=== PATIENT | female | born 1970 | race African-American/Black ===

== ENCOUNTER 2018-10-01 02:25 | Emergency (ER) | payer MEDICAID ==
[~2018-10-01] VITALS: Ht 177.8 cm; Wt 68.0 kg
[2018-10-01] MEDS ORDERED: UNOBMED (02:30)
--- NOTE | 2018-10-01 02:45 | NUR ---
ED Nurse Note: returned from break to resume care, tp in bed awake and alert, resting quietly, just returning from imaging, pt has patent iv line started by talita peacock, fluids infusing, pt on monitoring, will resume care as ordered and continue to closely monitor.
--- NOTE | 2018-10-01 03:16 | Emergency Room Report ---
History of Present Illness General Chief Complaint: Headache Source: Patient Present Illness HPI Patient present with complaints of headache Fairly diffuse in nature Reports that over the past several days has slowly started to worsen Denies any neck pain or photophobia denies any chest pain Patient reports that she has a history of HIV Is on HIV medication and blood pressure medication She does not recall the name of the medication Denies any recent fall or trauma Denies any focal deficit Denies any change in vision Allergies: Coded Allergies: No Known Allergies (Unverified , 10/01/18) Patient History Past Medical History: see triage record Pertinent Family History: none Last Menstrual Period: n/a Reviewed Nursing Documentation: PMH: Agreed; PSxH: Agreed Nursing Documentation-PMH Past Medical History: No History, Except For Hx Hypertension: Yes Review of Systems All Other Systems: negative except mentioned in HPI Physical Exam Vital Signs Date Time Temp Pulse Resp B/P (MAP) Pulse Ox O2 Delivery O2 Flow Rate FiO2 10/01/18 02:25 97.5 65 18 160/107 89 Room Air Sp02 EP Interpretation: reviewed, normal General Appearance: thin Head: normocephalic, atraumatic Eyes: bilateral eye PERRL, bilateral eye EOMI ENT: dry mucus membranes Neck: full range of motion, supple Respiratory: lungs clear, no respiratory distress, no retraction Cardiovascular #1: regular rate, rhythm Gastrointestinal: non tender, soft Musculoskeletal: normal inspection Neurologic: alert, oriented x3, responsive, business taxes specialist III-XII nml as tested Skin: no rash, warm/dry Medical Decision Making Diagnostic Impression: Primary Impression: Headache Additional Impression: Leukopenia ER Course Multiple differentials and consideration including but not limited to neurological, neurosurgical, infectious patient's blood work reveals a low white blood cell count Likely consistent with her HIV status Patient is somewhat noncompliant and is a poor historian cannot recall her CD4 or viral load count CT had otherwise negative patient's electrolytes are also appropriate patient has been resting comfortably throughout her stay At this time requires close outpatient follow-up and reevaluation of her leukopenia Labs Test 10/01/18 03:00 White Blood Count 2.4 K/UL (4.8-10.8) Red Blood Count 5.75 M/UL (4.20-5.40) Hemoglobin 14.7 G/DL (12.0-16.0) Hematocrit 46.0 % (37.0-47.0) Mean Corpuscular Volume 80 FL (80-99) Mean Corpuscular Hemoglobin 25.7 PG (27.0-31.0) Mean Corpuscular Hemoglobin Concent 32.1 G/DL (32.0-36.0) Red Cell Distribution Width 14.0 % (11.6-14.8) Platelet Count 286 K/UL (150-450) Mean Platelet Volume 6.1 FL (6.5-10.1) Neutrophils (%) (Auto) % (45.0-75.0) Lymphocytes (%) (Auto) % (20.0-45.0) Monocytes (%) (Auto) % (1.0-10.0) Eosinophils (%) (Auto) % (0.0-3.0) Basophils (%) (Auto) % (0.0-2.0) Sodium Level 137 MMOL/L (136-145) Potassium Level 3.9 MMOL/L (3.5-5.1) Chloride Level 100 MMOL/L (98-107) Carbon Dioxide Level 24 MMOL/L (21-32) Anion Gap 13 mmol/L (5-15) Blood Urea Nitrogen 15 mg/dL (7-18) Creatinine 0.9 MG/DL (0.55-1.30) Estimat Glomerular Filtration Rate > 60 mL/min (>60) Glucose Level 106 MG/DL (74-106) Calcium Level 9.8 MG/DL (8.5-10.1) Total Bilirubin 0.5 MG/DL (0.2-1.0) Aspartate Amino Transf (AST/SGOT) 34 U/L (15-37) Alanine Aminotransferase (ALT/SGPT) 38 U/L (12-78) Alkaline Phosphatase 90 U/L (46-116) Total Protein 9.2 G/DL (6.4-8.2) Albumin 3.8 G/DL (3.4-5.0) Globulin 5.4 g/dL Albumin/Globulin Ratio 0.7 (1.0-2.7) Rhythm Strip Diag. Results EP Interpretation: yes Rate: 60 Rhythm: NSR, no PVC's, no ectopy CT/MRI/US Diagnostic Results CT/MRI/US Diagnostic Results : Impression CT head no acute disease Last Vital Signs Date Time Temp Pulse Resp B/P (MAP) Pulse Ox O2 Delivery O2 Flow Rate FiO2 10/01/18 02:25 97.5 65 18 160/107 89 Room Air Status: improved Disposition: HOME, SELF-CARE Condition: Improved Scripts Ibuprofen* (MOTRIN*) 600 Mg Tablet 600 MG ORAL Q8H PRN for For Pain, #20 TAB 0 Refills Prov: Catrachita Yoder DO 10/01/18 Referrals: NOT CHOSEN IPA/MD,REFERRING (PCP) Additional Instructions: Patient is provided with the discharge instructions notified to follow up with primary doctor in the next 2-3 days otherwise return to the er with any worsening symptoms. Please note that this report is being documented using [employer] technology. This can lead to erroneous entry secondary to incorrect interpretation by the dictating instrument. Catrachita Yoder DO Oct 01, 2018 03:16
[2018-10-01 03:19] LABS: HEMOGLOBIN 14.7 G/DL (12.0-16.0); MEAN CORPUSCULAR VOLUME 80 FL (80-99); PLATELET COUNT 286 K/UL (150-450); RED BLOOD COUNT 5.75 M/UL (4.20-5.40); WHITE BLOOD COUNT 2.4 K/UL (4.8-10.8)
[2018-10-01 03:29] LABS: ANION GAP 13 mmol/L (5-15); BLOOD UREA NITROGEN 15 mg/dL (7-18); CALCIUM 9.8 MG/DL (8.5-10.1); CARBON DIOXIDE 24 MMOL/L (21-32); CHLORIDE 100 MMOL/L (98-107); CREATININE 0.9 MG/DL (0.55-1.30); POTASSIUM 3.9 MMOL/L (3.5-5.1); SODIUM 137 MMOL/L (136-145)
[2018-10-01 03:35] LABS: ALANINE AMINOTRANSFERASE 38 U/L (12-78); ALBUMIN 3.8 G/DL (3.4-5.0); ALBUMIN/GLOBULIN RATIO 0.7 (1.0-2.7); ALKALINE PHOSPHATASE 90 U/L (46-116); ASPARTATE AMINO TRANSFERASE 34 U/L (15-37); BILIRUBIN,TOTAL 0.5 MG/DL (0.2-1.0)
[2018-10-01] MEDS ORDERED: IBUPROFEN600 MG ORAL (04:11)
[2018-10-01 06:00] VITALS: BP 147/91
[2018-10-01 06:19] VITALS: BP 147/91
--- NOTE | 2018-10-01 10:25 | Diagnostic Imaging Report ---
Indications: Headache for one day Technique: Spiral acquisitions obtained through the brain. Angled axial and coronal 5 x 5 mm slices were reconstructed. Total dose length product 1309.23 mGycm. CTDI vol(s) 70.38 mGy. Dose reduction achieved using automated exposure control Comparison: None. Findings: No acute intracranial hemorrhage or edema, mass effect, nor midline shift. Normal adame-white differentiation. Normal-sized ventricles and extra axial CSF spaces. Intact calvarium. Visualized orbits and sinuses are unremarkable. Impression: Negative This agrees with the preliminary interpretation provided overnight by [facility]erad[facility] service. The CT scanner at [facility] is accredited by the [employer] and the scans are performed using protocols designed to limit radiation exposure to as low as reasonably achievable to attain images of sufficient resolution adequate for diagnostic evaluation.
== END 2018-10-01 06:20 | disposition home or self-care (01) ==
LOC: EDBD 02:25 → EMR 02:45 → CANBEDREQ 03:14 → EMR 06:20
DX: R51 Headache (principal); D72.819 Decreased white blood cell count, unspecified; I10 Essential (primary) hypertension
CPT/HCPCS: 36415; 70450; 80053; 85025; 96361; 96374; 99284; J2405

== ENCOUNTER 2018-10-11 14:05 | Inpatient (IN) | payer MEDICAID ==
[~2018-10-11] VITALS: Ht 160 cm; Wt 45.4 kg
[~2018-10-11 14:05] MED LIST: IBUPROFEN600 MG ORAL; UNOBMED
[2018-10-11 14:25] VITALS: BP 120/100
[2018-10-11] MEDS ORDERED: Sodium Chloride 1,400 ML IVLG ONE (14:30)
[2018-10-11 15:00] VITALS: BP 150/103
[2018-10-11 15:19] LABS: BASOPHILS % (AUTO) 2.7 % (0.0-2.0); EOSINOPHILS % (AUTO) 0.2 % (0.0-3.0); HEMATOCRIT 46.9 % (37.0-47.0); HEMOGLOBIN 15.4 G/DL (12.0-16.0); LYMPHOCYTES % (AUTO) 13.5 % (20.0-45.0); MEAN CORPUSCULAR VOLUME 80 FL (80-99); MONOCYTES % (AUTO) 11.2 % (1.0-10.0); NEUTROPHILS % (AUTO) 72.4 % (45.0-75.0); PLATELET COUNT 179 K/UL (150-450); RED BLOOD COUNT 5.88 M/UL (4.20-5.40); RED CELL DISTRIBUTION WIDTH 14.3 % (11.6-14.8); WHITE BLOOD COUNT 6.6 K/UL (4.8-10.8)
--- NOTE | 2018-10-11 15:57 | Diagnostic Imaging Report ---
Indication: Chest pain Technique: One view of the chest Comparison: none Findings: Lungs are hyperinflated. There is a large bulla in the right upper lobe. Very questionable focal hazy opacity is seen at the right lung base. Lungs and pleural spaces otherwise clear. The heart size is normal Impression: Evidence of bullous COPD Very questionable faint patchy infiltrate at the right lung base. No acute process otherwise
[2018-10-11 16:22] LABS: INR 1.2 (0.9-1.1)
--- NOTE | 2018-10-11 16:40 | Emergency Room Report ---
History of Present Illness General Chief Complaint: Generalized Weakness Source: Patient, EMS Present Illness HPI This patient complains of fatigue and generalized weakness. She has a history of HIV. She states she has been taking her HIV treatment. She denies pain. She denies recent illness. She denies chest pain or shortness of breath. She denies nausea or vomiting. She denies fever or chills. She denies dysuria or hematuria. She has no other complaints. Allergies: Coded Allergies: No Known Allergies (Unverified , 10/01/18) Patient History Past Medical History: see triage record, HTN, HIV Reviewed Nursing Documentation: PMH: Agreed; PSxH: Agreed Nursing Documentation-PMH Past Medical History: No History, Except For Hx Hypertension: Yes Review of Systems All Other Systems: negative except mentioned in HPI Physical Exam Vital Signs Date Time Temp Pulse Resp B/P (MAP) Pulse Ox O2 Delivery O2 Flow Rate FiO2 10/11/18 14:06 98.1 133 16 124/92 98 Room Air Sp02 EP Interpretation: reviewed, normal General Appearance: no apparent distress, alert, GCS 15, non-toxic, cachetic Head: normocephalic, atraumatic Eyes: bilateral eye normal inspection, bilateral eye PERRL ENT: hearing grossly normal, normal pharynx, no angioedema, normal voice Neck: full range of motion, supple/symm/no masses Respiratory: chest non-tender, lungs clear, normal breath sounds, no respiratory distress, no retraction, no accessory muscle use, speaking full sentences Cardiovascular #1: regular rate, rhythm, no edema Gastrointestinal: normal bowel sounds, non tender, soft, non-distended, no guarding, no rebound Rectal: deferred Musculoskeletal: back normal, normal range of motion, non-tender Neurologic: alert, oriented x3, responsive, motor strength/tone normal, sensory intact, speech normal Psychiatric: judgement/insight normal, memory normal, mood/affect normal, no suicidal/homicidal ideation Skin: normal color, no rash, warm/dry, well hydrated Medical Decision Making Diagnostic Impression: Primary Impression: UTI (urinary tract infection) Additional Impressions: HIV (human immunodeficiency virus infection) Cachexia ER Course This patient is profoundly cachectic. She has a history of HIV and although she states she is taking her antiretrovirals, I'm concerned that maybe she is noncompliant. Regardless, she was found to have a urinary tract infection. I' m concerned about immunocompromised in this patient I do not feel that she is safe to be discharged home. She given IV antibiotics and IV fluids here in the emergency department. She had significant improvement in her heart rate with IV fluids. She was found to be positive for cocaine on urine drug screen. She is admitted for further evaluation and treatment. Laboratory Tests Test 10/11/18 15:04 10/11/18 15:50 White Blood Count 6.6 K/UL (4.8-10.8) Red Blood Count 5.88 M/UL (4.20-5.40) H Hemoglobin 15.4 G/DL (12.0-16.0) Hematocrit 46.9 % (37.0-47.0) Mean Corpuscular Volume 80 FL (80-99) Mean Corpuscular Hemoglobin 26.3 PG (27.0-31.0) L Mean Corpuscular Hemoglobin Concent 32.9 G/DL (32.0-36.0) Red Cell Distribution Width 14.3 % (11.6-14.8) Platelet Count 179 K/UL (150-450) Mean Platelet Volume 6.2 FL (6.5-10.1) L Neutrophils (%) (Auto) 72.4 % (45.0-75.0) Lymphocytes (%) (Auto) 13.5 % (20.0-45.0) L Monocytes (%) (Auto) 11.2 % (1.0-10.0) H Eosinophils (%) (Auto) 0.2 % (0.0-3.0) Basophils (%) (Auto) 2.7 % (0.0-2.0) H Prothrombin Time 12.5 SEC (9.30-11.50) H Prothrombin Time INR 1.2 (0.9-1.1) H PTT 26 SEC (23-33) Lactic Acid Level Pending Serum Alcohol Pending EKG Diagnostic Results Rate: tachycardiac Rhythm: other - s.tachycardia ST Segments: other - flipped T-waves V4,V5, V6 Rhythm Strip Diag. Results EP Interpretation: yes Rate: 110's Rhythm: no PVC's, no ectopy, other - S.tachycardia Chest X-Ray Diagnostic Results Chest X-Ray Diagnostic Results : Chest X-Ray Ordered: Yes # of Views/Limited/Complete: 1 View Indication: Other - weak EP Interpretation: Yes Interpretation: no effusion, no pneumothorax, other - RLL opacity Impression: Other - See above Electronically Signed by: Maxine Pham DO Last Vital Signs Date Time Temp Pulse Resp B/P (MAP) Pulse Ox O2 Delivery O2 Flow Rate FiO2 10/11/18 14:25 120 20 10/11/18 14:25 98.0 120/100 100 Room Air Status: improved Disposition: ADMITTED INPATIENT Condition: Serious Referrals: NOT CHOSEN IPA/,REFERRING (PCP) Maxine Pham DO Oct 11, 2018 16:40
[2018-10-11 17:00] VITALS: BP 157/102
[2018-10-11 17:47] LABS: APPEARANCE,URINE SLIGHTLY CLOUDY; BILIRUBIN, URINE NEGATIVE (NEGATIVE); COLOR,URINE YELLOW; GLUCOSE, URINE (UA) NEGATIVE (NEGATIVE); KETONES,URINE NEGATIVE (NEGATIVE); LEUKOCYTE ESTERASE ,URINE 3+ (NEGATIVE); NITRITE,URINE POSITIVE (NEGATIVE); PH,URINE 6.5 (4.5-8.0); PROTEIN,URINE 2+ (NEGATIVE); UROBILINOGEN,URINE 4 MG/DL (0.0-1.0)
[2018-10-11 19:00] VITALS: BP 137/108
[2018-10-11] MEDS ORDERED: cefTRIAXone 1 GM in NS 55 ML IVPB ONE (19:30)
[2018-10-11 20:11] LABS: ANION GAP 10 mmol/L (5-15); BLOOD UREA NITROGEN 21 mg/dL (7-18); CALCIUM 9.1 MG/DL (8.5-10.1); CARBON DIOXIDE 26 MMOL/L (21-32); CHLORIDE 105 MMOL/L (98-107); CREATININE 0.8 MG/DL (0.55-1.30); POTASSIUM 3.5 MMOL/L (3.5-5.1); SODIUM 141 MMOL/L (136-145)
[2018-10-11 20:24] LABS: ALANINE AMINOTRANSFERASE 62 U/L (12-78); ALBUMIN 3.1 G/DL (3.4-5.0); ALBUMIN/GLOBULIN RATIO 0.7 (1.0-2.7); ALKALINE PHOSPHATASE 82 U/L (46-116); ASPARTATE AMINO TRANSFERASE 37 U/L (15-37); BILIRUBIN,TOTAL 0.6 MG/DL (0.2-1.0); CKMB 1.2 NG/ML (0.0-3.6); CREATINE KINASE 54 U/L (26-308); PHOSPHORUS 3.6 MG/DL (2.5-4.9)
[2018-10-11] MEDS ORDERED: Albuterol/Ipratropium 3ml neb HHN PRN (21:45)
[2018-10-11] MEDS ORDERED: Miralax 17gm pkt ORAL PRN (21:45)
[2018-10-11] MEDS ORDERED: Morphine Sulfate 2mg/ml Inj(IV/IM USE ONLY) IVP PRN (21:45)
[2018-10-11] MEDS ORDERED: Vancomycin 1 GM in D5W 275 ML IVPB SCH (23:00)
[2018-10-12] VITALS: BP 156/102
[2018-10-12 04:00] VITALS: BP 151/103
[2018-10-12 06:37] LABS: BASOPHILS % (AUTO) 0.8 % (0.0-2.0); EOSINOPHILS % (AUTO) 0.2 % (0.0-3.0); HEMATOCRIT 44.9 % (37.0-47.0); HEMOGLOBIN 14.4 G/DL (12.0-16.0); LYMPHOCYTES % (AUTO) 10.1 % (20.0-45.0); MEAN CORPUSCULAR VOLUME 81 FL (80-99); MONOCYTES % (AUTO) 10.5 % (1.0-10.0); NEUTROPHILS % (AUTO) 78.5 % (45.0-75.0); PLATELET COUNT 197 K/UL (150-450); RED BLOOD COUNT 5.55 M/UL (4.20-5.40); RED CELL DISTRIBUTION WIDTH 14.8 % (11.6-14.8); WHITE BLOOD COUNT 3.7 K/UL (4.8-10.8)
[2018-10-12 06:50] LABS: ALANINE AMINOTRANSFERASE 59 U/L (12-78); ALBUMIN 3.2 G/DL (3.4-5.0); ALBUMIN/GLOBULIN RATIO 0.7 (1.0-2.7); ALKALINE PHOSPHATASE 80 U/L (46-116); ANION GAP 10 mmol/L (5-15); ASPARTATE AMINO TRANSFERASE 37 U/L (15-37); BILIRUBIN,TOTAL 0.8 MG/DL (0.2-1.0); BLOOD UREA NITROGEN 13 mg/dL (7-18); CALCIUM 8.8 MG/DL (8.5-10.1); CARBON DIOXIDE 25 MMOL/L (21-32); CHLORIDE 101 MMOL/L (98-107); CREATININE 0.7 MG/DL (0.55-1.30); POTASSIUM 3.2 MMOL/L (3.5-5.1); SODIUM 136 MMOL/L (136-145)
[2018-10-12] MEDS ORDERED: Vancomycin 500mg/D5W 110ml IVPB SCH ×2 (07:00)
[2018-10-12 08:00] VITALS: BP 154/117
[2018-10-12] MEDS: Cefepime HCl 2 GM in D5W 110 ML IV SCH ×2 (08:43→21:26)
[2018-10-12] MEDS: Heparin 5000 units/ml inj SUBQ SCH ×2 (08:44→21:26)
[2018-10-12 12:00] VITALS: BP 135/105
--- NOTE | 2018-10-12 12:17 | Consultation ---
History of Present Illness General Date patient seen: Oct 12, 2018 Chief Complaint: Generalized Weakness Present Illness HPI 48 y/o F with hx of HIV on ART, HTN presents to ED on on 10/11 with fatigue and generalized weakness Denied f/c, n/v/d, dysuria, hematuria, CP, SOB. Allergies: Coded Allergies: No Known Allergies (Unverified , 10/01/18) Medication History Scheduled PRN Ibuprofen* (Motrin*), 600 MG ORAL Q8H PRN for For Pain Miscellaneous Medications Unable to Obtain Medications (Unable To Obtain Meds), (Reported) Patient History Healthcare decision maker N Resuscitation status Full Code Advanced Directive on File Patient History Narrative Pmhx: as above Shx: reviewed Fhx: non contributory Review of Systems All Other Systems: negative except mentioned in HPI Physical Exam Physical Exam Narrative General Appearance: no apparent distress, alert, non-toxic, cachetic Head: normocephalic, atraumatic Eyes: bilateral eye normal inspection, bilateral eye PERRL ENT: hearing grossly normal, normal pharynx, no angioedema, normal voice Neck: full range of motion, supple/symm/no masses Respiratory: chest non-tender, lungs clear, normal breath sounds, no respiratory distress, no retraction, no accessory muscle use, speaking full sentences Cardiovascular #1: regular rate, rhythm, no edema Gastrointestinal: normal bowel sounds, non tender, soft, non-distended, no guarding, no rebound Rectal: deferred Musculoskeletal: back normal, normal range of motion, non-tender Neurologic: alert, oriented x3, responsive, motor strength/tone normal, sensory intact, speech normal Skin: normal color, no rash, warm/dry, well hydrated Last 24 Hour Vital Signs Date Time Temp Pulse Resp B/P (MAP) Pulse Ox O2 Delivery O2 Flow Rate FiO2 10/12/18 09:00 Room Air 10/12/18 08:00 98.6 104 19 154/117 (129) 99 10/12/18 04:00 98.5 73 17 151/103 (119) 94 10/12/18 00:00 98.2 75 18 156/102 (120) 93 10/11/18 22:51 Room Air 10/11/18 22:27 98.4 98 16 129/101 100 Room Air 10/11/18 19:00 98.2 109 18 137/108 100 Room Air 10/11/18 17:00 98.2 103 18 157/102 100 Room Air 10/11/18 15:00 98.0 108 20 150/103 100 Room Air 10/11/18 14:25 120 20 10/11/18 14:25 98.0 120 20 120/100 100 Room Air 10/11/18 14:06 98.1 133 16 124/92 98 Room Air Intake and Output 10/11/18 10/12/18 18:59 06:59 Intake Total 1400 ml Output Total 0 ml Balance 0 ml 1400 ml Intake IV Total 1400 ml Output Urine Total 0 ml # Voids 6 # Bowel Movements 3 Laboratory Tests Test 10/11/18 15:04 10/11/18 15:50 10/11/18 17:07 10/11/18 17:30 White Blood Count 6.6 K/UL (4.8-10.8) Red Blood Count 5.88 M/UL (4.20-5.40) H Hemoglobin 15.4 G/DL (12.0-16.0) Hematocrit 46.9 % (37.0-47.0) Mean Corpuscular Volume 80 FL (80-99) Mean Corpuscular Hemoglobin 26.3 PG (27.0-31.0) L Mean Corpuscular Hemoglobin Concent 32.9 G/DL (32.0-36.0) Red Cell Distribution Width 14.3 % (11.6-14.8) Platelet Count 179 K/UL (150-450) Mean Platelet Volume 6.2 FL (6.5-10.1) L Neutrophils (%) (Auto) 72.4 % (45.0-75.0) Lymphocytes (%) (Auto) 13.5 % (20.0-45.0) L Monocytes (%) (Auto) 11.2 % (1.0-10.0) H Eosinophils (%) (Auto) 0.2 % (0.0-3.0) Basophils (%) (Auto) 2.7 % (0.0-2.0) H Prothrombin Time 12.5 SEC (9.30-11.50) H Prothromb Time International Ratio 1.2 (0.9-1.1) H Activated Partial Thromboplast Time 26 SEC (23-33) Serum Alcohol < 3 mg/dL Lactic Acid Level 2.30 mmol/L (0.4-2.0) H Urine Color Yellow Urine Appearance Slightly cloudy Urine pH 6.5 (4.5-8.0) Urine Specific [place] 1.015 (1.005-1.035) Urine Protein 2+ (NEGATIVE) H Urine Glucose (UA) Negative (NEGATIVE) Urine Ketones Negative (NEGATIVE) Urine Blood 1+ (NEGATIVE) H Urine Nitrite Positive (NEGATIVE) H Urine Bilirubin Negative (NEGATIVE) Urine Urobilinogen 4 MG/DL (0.0-1.0) H Urine Leukocyte Esterase 3+ (NEGATIVE) H Urine RBC 0-2 /HPF (0 - 2) Urine WBC 60-80 /HPF (0 - 2) H Urine Squamous Epithelial Cells Occasional /LPF Urine Bacteria Moderate /HPF (NONE) H Urine Opiates Screen Negative (NEGATIVE) Urine Barbiturates Screen Negative (NEGATIVE) Phencyclidine (PCP) Screen Negative (NEGATIVE) Urine Amphetamines Screen Negative (NEGATIVE) Urine Benzodiazepines Screen Negative (NEGATIVE) Urine Cocaine Screen Positive (NEGATIVE) H Urine Marijuana (THC) Screen Negative (NEGATIVE) Test 10/11/18 19:00 10/12/18 05:20 Sodium Level 141 MMOL/L (136-145) 136 MMOL/L (136-145) Potassium Level 3.5 MMOL/L (3.5-5.1) 3.2 MMOL/L (3.5-5.1) L Chloride Level 105 MMOL/L (98-107) 101 MMOL/L (98-107) Carbon Dioxide Level 26 MMOL/L (21-32) 25 MMOL/L (21-32) Anion Gap 10 mmol/L (5-15) 10 mmol/L (5-15) Blood Urea Nitrogen 21 mg/dL (7-18) H 13 mg/dL (7-18) Creatinine 0.8 MG/DL (0.55-1.30) 0.7 MG/DL (0.55-1.30) Estimat Glomerular Filtration Rate > 60 mL/min (>60) > 60 mL/min (>60) Glucose Level 127 MG/DL (74-106) H 131 MG/DL (74-106) H Lactic Acid Level 1.80 mmol/L (0.66-2.22) Calcium Level 9.1 MG/DL (8.5-10.1) 8.8 MG/DL (8.5-10.1) Phosphorus Level 3.6 MG/DL (2.5-4.9) Magnesium Level 2.1 MG/DL (1.8-2.4) Total Bilirubin 0.6 MG/DL (0.2-1.0) 0.8 MG/DL (0.2-1.0) Aspartate Amino Transf (AST/SGOT) 37 U/L (15-37) 37 U/L (15-37) Alanine Aminotransferase (ALT/SGPT) 62 U/L (12-78) 59 U/L (12-78) Alkaline Phosphatase 82 U/L (46-116) 80 U/L (46-116) Total Creatine Kinase 54 U/L (26-308) Creatine Kinase MB 1.2 NG/ML (0.0-3.6) Creatine Kinase MB Relative Index 2.2 Troponin I 0.014 ng/mL (0.000-0.056) Total Protein 7.6 G/DL (6.4-8.2) 7.8 G/DL (6.4-8.2) Albumin 3.1 G/DL (3.4-5.0) L 3.2 G/DL (3.4-5.0) L Globulin 4.5 g/dL 4.6 g/dL Albumin/Globulin Ratio 0.7 (1.0-2.7) L 0.7 (1.0-2.7) L White Blood Count 3.7 K/UL (4.8-10.8) L Red Blood Count 5.55 M/UL (4.20-5.40) H Hemoglobin 14.4 G/DL (12.0-16.0) Hematocrit 44.9 % (37.0-47.0) Mean Corpuscular Volume 81 FL (80-99) Mean Corpuscular Hemoglobin 25.9 PG (27.0-31.0) L Mean Corpuscular Hemoglobin Concent 32.0 G/DL (32.0-36.0) Red Cell Distribution Width 14.8 % (11.6-14.8) Platelet Count 197 K/UL (150-450) Mean Platelet Volume 7.6 FL (6.5-10.1) Neutrophils (%) (Auto) 78.5 % (45.0-75.0) H Lymphocytes (%) (Auto) 10.1 % (20.0-45.0) L Monocytes (%) (Auto) 10.5 % (1.0-10.0) H Eosinophils (%) (Auto) 0.2 % (0.0-3.0) Basophils (%) (Auto) 0.8 % (0.0-2.0) Microbiology Date/Time Source Procedure Growth Status 10/11/18 17:30 Urine,Clean Catch Urine Culture - Preliminary Gram Negative Abdi Resulted 10/11/18 22:16 Rectum Received Height (Feet): 5 Height (Inches): 3.00 Weight (Pounds): 100 Medications Current Medications Medications (Trade) Dose Ordered Sig/Diaz Route PRN Reason Start Time Stop Time Status Last Admin Dose Admin Acetaminophen (Tylenol) 650 mg Q4H PRN ORAL fever 10/11/18 21:45 11/10/18 21:44 Albuterol/ Ipratropium (Albuterol/ Ipratropium) 3 ml Q4H PRN HHN Shortness of Breath 10/11/18 21:45 10/16/18 21:44 Cefepime HCl 2 gm/ Dextrose 110 ml @ 220 mls/hr EVERY 12 HOURS IV 10/12/18 09:00 10/19/18 08:59 10/12/18 08:43 Clonidine HCl (Catapres Tab) 0.1 mg Q6H PRN ORAL SBP > 160 mm Hg 10/12/18 07:01 11/11/18 07:00 Heparin Sodium (Porcine) (Heparin 5000 units/ml) 5,000 units EVERY 12 HOURS SUBQ 10/12/18 09:00 11/11/18 08:59 10/12/18 08:44 Morphine Sulfate (Morphine Sulfate) 2 mg Q4H PRN IVP Moderate Pain (Pain Scale 4-6) 10/11/18 21:45 10/18/18 21:44 Ondansetron HCl (Zofran) 4 mg Q6H PRN IVP Nausea & Vomiting 10/11/18 21:45 11/10/18 21:44 Phenazopyridine HCl (Pyridium) 100 mg DAILYPRN PRN ORAL dysuria 10/11/18 21:45 11/10/18 21:44 Polyethylene Glycol (Miralax) 17 gm DAILYPRN PRN ORAL Constipation 10/11/18 21:45 11/10/18 21:44 Temazepam (Restoril) 15 mg HSPRN PRN ORAL Insomnia 10/11/18 21:45 10/18/18 21:44 Vancomycin HCl (Vanco rx to dose) 1 ea DAILY PRN MISC Per rx protocol 10/11/18 22:00 11/10/18 21:59 Vancomycin HCl 500 mg/Dextrose 110 ml @ 110 mls/hr Q8H IVPB 10/12/18 07:00 10/17/18 06:59 10/12/18 06:26 Assessment/Plan Assessment: Abx: Ceftriaxone x1 10/11 Cefepime 10/12- IV Vancomycin 10/11- Assessment: Afebrile Mild leukopenia Pyuria/bacteriuria- ?UTI ( no symptoms but potentially immunocompromised; we don 't know details about her HIV control status) -u/a wbc 60-80,n it +, leuk +3; UCx >100k GNR -CXR: Evidence of bullous COPD.Very questionable faint patchy infiltrate at the right lung base. No acute process otherwise UDS+ cocaine Homeless HIV- unknown CD4, VL and Medication regimen HTN Plan: -d/c empiric IV Vancomycin #2 -Continue empiric IV Cefepime #1 (abx d#2)pending urine culture -f/u cx -Monitor CBC/CMP, temperatures -HIV VL and CD4 am -hep serologies, RPR, GC/CL Thank you for this consultation. Will continue to follow along with you. Discussed with Marah Hardin M.D. Oct 12, 2018 12:17
--- NOTE | 2018-10-12 12:32 | Consultation ---
History of Present Illness General Date patient seen: Oct 12, 2018 Chief Complaint: Generalized Weakness Present Illness HPI 48 year old female with hx of HIV, homeless, presented to ER with CC of generalized fatigue. Pt is extremely cachectic and looked chronically ill. Her urine was positive for cocaine. She is admitted for further work up. Allergies: Coded Allergies: No Known Allergies (Unverified , 10/01/18) Medication History Scheduled PRN Ibuprofen* (Motrin*), 600 MG ORAL Q8H PRN for For Pain Miscellaneous Medications Unable to Obtain Medications (Unable To Obtain Meds), (Reported) Patient History Healthcare decision maker N Resuscitation status Full Code Advanced Directive on File Past Medical/Surgical History Past Medical/Surgical History: (1) Homelessness (2) Cocaine abuse (3) HIV (human immunodeficiency virus infection) (4) Cachexia Review of Systems All Other Systems: negative except mentioned in HPI Physical Exam General Appearance: cachetic Lines, tubes and drains: peripheral HEENT: normocephalic, atraumatic Neck: non-tender, normal alignment Respiratory/Chest: chest wall non-tender, lungs clear Cardiovascular/Chest: normal peripheral pulses, regular rhythm Abdomen: normal bowel sounds, non tender Last 24 Hour Vital Signs Date Time Temp Pulse Resp B/P (MAP) Pulse Ox O2 Delivery O2 Flow Rate FiO2 10/12/18 09:00 Room Air 10/12/18 08:00 98.6 104 19 154/117 (129) 99 10/12/18 04:00 98.5 73 17 151/103 (119) 94 10/12/18 00:00 98.2 75 18 156/102 (120) 93 10/11/18 22:51 Room Air 10/11/18 22:27 98.4 98 16 129/101 100 Room Air 10/11/18 19:00 98.2 109 18 137/108 100 Room Air 10/11/18 17:00 98.2 103 18 157/102 100 Room Air 10/11/18 15:00 98.0 108 20 150/103 100 Room Air 10/11/18 14:25 120 20 10/11/18 14:25 98.0 120 20 120/100 100 Room Air 10/11/18 14:06 98.1 133 16 124/92 98 Room Air Intake and Output 10/11/18 10/12/18 18:59 06:59 Intake Total 1400 ml Output Total 0 ml Balance 0 ml 1400 ml Intake IV Total 1400 ml Output Urine Total 0 ml # Voids 6 # Bowel Movements 3 Laboratory Tests Test 10/11/18 15:04 10/11/18 15:50 10/11/18 17:07 10/11/18 17:30 White Blood Count 6.6 K/UL (4.8-10.8) Red Blood Count 5.88 M/UL (4.20-5.40) H Hemoglobin 15.4 G/DL (12.0-16.0) Hematocrit 46.9 % (37.0-47.0) Mean Corpuscular Volume 80 FL (80-99) Mean Corpuscular Hemoglobin 26.3 PG (27.0-31.0) L Mean Corpuscular Hemoglobin Concent 32.9 G/DL (32.0-36.0) Red Cell Distribution Width 14.3 % (11.6-14.8) Platelet Count 179 K/UL (150-450) Mean Platelet Volume 6.2 FL (6.5-10.1) L Neutrophils (%) (Auto) 72.4 % (45.0-75.0) Lymphocytes (%) (Auto) 13.5 % (20.0-45.0) L Monocytes (%) (Auto) 11.2 % (1.0-10.0) H Eosinophils (%) (Auto) 0.2 % (0.0-3.0) Basophils (%) (Auto) 2.7 % (0.0-2.0) H Prothrombin Time 12.5 SEC (9.30-11.50) H Prothromb Time International Ratio 1.2 (0.9-1.1) H Activated Partial Thromboplast Time 26 SEC (23-33) Serum Alcohol < 3 mg/dL Lactic Acid Level 2.30 mmol/L (0.4-2.0) H Urine Color Yellow Urine Appearance Slightly cloudy Urine pH 6.5 (4.5-8.0) Urine Specific [place] 1.015 (1.005-1.035) Urine Protein 2+ (NEGATIVE) H Urine Glucose (UA) Negative (NEGATIVE) Urine Ketones Negative (NEGATIVE) Urine Blood 1+ (NEGATIVE) H Urine Nitrite Positive (NEGATIVE) H Urine Bilirubin Negative (NEGATIVE) Urine Urobilinogen 4 MG/DL (0.0-1.0) H Urine Leukocyte Esterase 3+ (NEGATIVE) H Urine RBC 0-2 /HPF (0 - 2) Urine WBC 60-80 /HPF (0 - 2) H Urine Squamous Epithelial Cells Occasional /LPF Urine Bacteria Moderate /HPF (NONE) H Urine Opiates Screen Negative (NEGATIVE) Urine Barbiturates Screen Negative (NEGATIVE) Phencyclidine (PCP) Screen Negative (NEGATIVE) Urine Amphetamines Screen Negative (NEGATIVE) Urine Benzodiazepines Screen Negative (NEGATIVE) Urine Cocaine Screen Positive (NEGATIVE) H Urine Marijuana (THC) Screen Negative (NEGATIVE) Test 10/11/18 19:00 10/12/18 05:20 Sodium Level 141 MMOL/L (136-145) 136 MMOL/L (136-145) Potassium Level 3.5 MMOL/L (3.5-5.1) 3.2 MMOL/L (3.5-5.1) L Chloride Level 105 MMOL/L (98-107) 101 MMOL/L (98-107) Carbon Dioxide Level 26 MMOL/L (21-32) 25 MMOL/L (21-32) Anion Gap 10 mmol/L (5-15) 10 mmol/L (5-15) Blood Urea Nitrogen 21 mg/dL (7-18) H 13 mg/dL (7-18) Creatinine 0.8 MG/DL (0.55-1.30) 0.7 MG/DL (0.55-1.30) Estimat Glomerular Filtration Rate > 60 mL/min (>60) > 60 mL/min (>60) Glucose Level 127 MG/DL (74-106) H 131 MG/DL (74-106) H Lactic Acid Level 1.80 mmol/L (0.66-2.22) Calcium Level 9.1 MG/DL (8.5-10.1) 8.8 MG/DL (8.5-10.1) Phosphorus Level 3.6 MG/DL (2.5-4.9) Magnesium Level 2.1 MG/DL (1.8-2.4) Total Bilirubin 0.6 MG/DL (0.2-1.0) 0.8 MG/DL (0.2-1.0) Aspartate Amino Transf (AST/SGOT) 37 U/L (15-37) 37 U/L (15-37) Alanine Aminotransferase (ALT/SGPT) 62 U/L (12-78) 59 U/L (12-78) Alkaline Phosphatase 82 U/L (46-116) 80 U/L (46-116) Total Creatine Kinase 54 U/L (26-308) Creatine Kinase MB 1.2 NG/ML (0.0-3.6) Creatine Kinase MB Relative Index 2.2 Troponin I 0.014 ng/mL (0.000-0.056) Total Protein 7.6 G/DL (6.4-8.2) 7.8 G/DL (6.4-8.2) Albumin 3.1 G/DL (3.4-5.0) L 3.2 G/DL (3.4-5.0) L Globulin 4.5 g/dL 4.6 g/dL Albumin/Globulin Ratio 0.7 (1.0-2.7) L 0.7 (1.0-2.7) L White Blood Count 3.7 K/UL (4.8-10.8) L Red Blood Count 5.55 M/UL (4.20-5.40) H Hemoglobin 14.4 G/DL (12.0-16.0) Hematocrit 44.9 % (37.0-47.0) Mean Corpuscular Volume 81 FL (80-99) Mean Corpuscular Hemoglobin 25.9 PG (27.0-31.0) L Mean Corpuscular Hemoglobin Concent 32.0 G/DL (32.0-36.0) Red Cell Distribution Width 14.8 % (11.6-14.8) Platelet Count 197 K/UL (150-450) Mean Platelet Volume 7.6 FL (6.5-10.1) Neutrophils (%) (Auto) 78.5 % (45.0-75.0) H Lymphocytes (%) (Auto) 10.1 % (20.0-45.0) L Monocytes (%) (Auto) 10.5 % (1.0-10.0) H Eosinophils (%) (Auto) 0.2 % (0.0-3.0) Basophils (%) (Auto) 0.8 % (0.0-2.0) Microbiology Date/Time Source Procedure Growth Status 10/11/18 17:30 Urine,Clean Catch Urine Culture - Preliminary Gram Negative Abdi Resulted 4/22/19 22:16 Rectum Received Height (Feet): 5 Height (Inches): 3.00 Weight (Pounds): 100 Medications Current Medications Medications (Trade) Dose Ordered Sig/Diaz Route PRN Reason Start Time Stop Time Status Last Admin Dose Admin Acetaminophen (Tylenol) 650 mg Q4H PRN ORAL fever 10/11/18 21:45 11/10/18 21:44 Albuterol/ Ipratropium (Albuterol/ Ipratropium) 3 ml Q4H PRN HHN Shortness of Breath 10/11/18 21:45 10/16/18 21:44 Cefepime HCl 2 gm/ Dextrose 110 ml @ 220 mls/hr EVERY 12 HOURS IV 10/12/18 09:00 10/19/18 08:59 10/12/18 08:43 Clonidine HCl (Catapres Tab) 0.1 mg Q6H PRN ORAL SBP > 160 mm Hg 10/12/18 07:01 11/11/18 07:00 Heparin Sodium (Porcine) (Heparin 5000 units/ml) 5,000 units EVERY 12 HOURS SUBQ 10/12/18 09:00 11/11/18 08:59 10/12/18 08:44 Morphine Sulfate (Morphine Sulfate) 2 mg Q4H PRN IVP Moderate Pain (Pain Scale 4-6) 10/11/18 21:45 10/18/18 21:44 Ondansetron HCl (Zofran) 4 mg Q6H PRN IVP Nausea & Vomiting 10/11/18 21:45 11/10/18 21:44 Phenazopyridine HCl (Pyridium) 100 mg DAILYPRN PRN ORAL dysuria 10/11/18 21:45 11/10/18 21:44 Polyethylene Glycol (Miralax) 17 gm DAILYPRN PRN ORAL Constipation 10/11/18 21:45 11/10/18 21:44 Temazepam (Restoril) 15 mg HSPRN PRN ORAL Insomnia 10/11/18 21:45 10/18/18 21:44 Vancomycin HCl (Vanco rx to dose) 1 ea DAILY PRN MISC Per rx protocol 10/11/18 22:00 11/10/18 21:59 Vancomycin HCl 500 mg/Dextrose 110 ml @ 110 mls/hr Q8H IVPB 10/12/18 07:00 10/17/18 06:59 10/12/18 06:26 Assessment/Plan Problem List: (1) UTI (urinary tract infection) ICD Codes: N39.0 - Urinary tract infection, site not specified SNOMED: 77988096 (2) Cachexia ICD Codes: R64 - Cachexia SNOMED: 366258723 (3) HIV (human immunodeficiency virus infection) ICD Codes: B20 - Human immunodeficiency virus [HIV] disease SNOMED: 88884427 (4) Cocaine abuse ICD Codes: F14.10 - Cocaine abuse, uncomplicated SNOMED: 99235410 Diagnosis [place] I: ID evaluation social service evaluation IV abx as per ID check CD4 count symptomatic treatment trial of marinol to increase appetite Get Terry MD Oct 12, 2018 12:32
[2018-10-12] MEDS: Dronabinol 2.5mg Cap ORAL SCH ×2 (13:12→18:06)
[2018-10-12 16:00] VITALS: BP 120/94
[2018-10-12] MEDS ORDERED: CIPRO500 MG/51 PO (16:29)
--- NOTE | 2018-10-12 17:44 | History & Physical ---
History and Physical History & Physicial Dictated for Int Med-Dr Trammell no. [id number]. Abilio Younger MD Oct 12, 2018 17:44
[2018-10-12 20:00] VITALS: BP 119/89
--- NOTE | 2018-10-12 23:00 | History and Physical Report ---
DATE OF ADMISSION: 10/12/2018 CHIEF COMPLAINT: The patient is a 48-year-old female, who presents with a chief complaint of fatigue and generalized weakness. HISTORY OF PRESENT ILLNESS: The patient has a history of human immunodeficiency virus. The patient states history of present illness began few days prior to admission. The patient began to experience extreme fatigue. The patient also was generally weak. The patient presented to [place] emergency room. The patient was admitted for fatigue and generalized weakness. REVIEW OF SYSTEMS: CONSTITUTIONAL: The patient denies weight loss or weight gain. The patient denies fevers or chills. HEENT: The patient denies ear or throat pain. The patient denies headache. CARDIOVASCULAR: The patient denies palpitations or chest pain. CHEST: The patient denies wheeze or shortness of breath. ABDOMINAL: The patient denies nausea, vomiting, diarrhea, or constipation. GENITOURINARY: The patient denies dysuria or increased frequency of urination. NEUROMUSCULAR: The patient complains of generalized weakness. The patient denies seizures. PAST MEDICAL HISTORY: Significant for, 1. Human immunodeficiency virus. 2. Hypertension. PAST SURGICAL HISTORY: The patient denies. CURRENT MEDICATIONS: The patient denies current medications. ALLERGIES: No known drug allergies. SOCIAL HISTORY: The patient is single. The patient is apparently homeless. The patient denies tobacco or alcohol use. The patient admits to alcohol and cocaine use. The patient admits to tobacco use of one pack per day. The patient denies other drugs abuse. PHYSICAL EXAMINATION: VITAL SIGNS: Temperature 98.1, respirations 16, pulse 133, and blood pressure 124/92. GENERAL: The patient is thin appearing, cachectic female, who is sleeping. HEENT: Eyes, pupils are equal and responsive to light and accommodation. Extraocular movements are intact. NECK: Supple without lymphadenopathy. CHEST: Lungs are clear to auscultation bilaterally without wheezes or rales. CARDIOVASCULAR: Regular rhythm and rate. S1 and S2 are normal without murmurs, rubs, or gallops. ABDOMEN: Soft, nontender, and nondistended. Positive bowel sounds. No evidence of hepatosplenomegaly. Currently, no rebound or guarding noted. EXTREMITIES: Negative for clubbing, cyanosis, or edema. RECTAL/GENITAL: Refused. NEUROLOGIC: Cranial nerves II through XII are grossly intact without focal deficits. Motor strength is 5/5 bilaterally. Deep tendon reflexes are 2+ plantar. LABORATORY STUDIES: WBC 6.6, hemoglobin 15.4, hematocrit 46.9, and platelets 179,000. Sodium 141, potassium 3.5, chloride 105, CO2 26, BUN 21, creatinine 0.8, and glucose 127. Urinalysis showed 2+ protein, 1+ blood, positive nitrites, and 3+ leukocyte esterase with 60 to 80 wbc's. Toxicology revealed positive for cocaine. ASSESSMENT: This is a 48-year-old female. 1. Fatigue. 2. Generalized weakness. 3. Urinary tract infection. 4. Human immunodeficiency virus. 5. Hypertension. 6. Cocaine abuse. TREATMENT: 1. Urinary tract infection. Urine culture is pending. An Infectious Disease consultation has been obtained with Dr. Vo. The patient has been started empirically on intravenous cefepime and vancomycin. The urine culture is pending. 2. Fatigue/generalized weakness. This may be secondary to urinary tract infection and possible pyelonephritis. We will follow recommendations of Infectious Disease. 3. Human immunodeficiency virus as above. An Infectious Disease consultation has been obtained with Dr. Vo. The patient was admitted without ART medication. We will follow recommendation of Infectious Disease. 4. Hypertension. The patient has been placed empirically on clonidine 0.1 mg p.o. q.6 hours p.r.n. 5. History of cocaine abuse. Abilio Younger M.D. DR: WILLIE JOB#: [id number] CC:
[2018-10-13 04:15] VITALS: BP 150/107
[2018-10-13] MEDS ORDERED: Tubing IV Secondary IV ONE (07:37)
[2018-10-13] MEDS ORDERED: NS 500ML ONE (07:37)
[2018-10-13 08:00] VITALS: BP 119/89
[2018-10-13] MEDS: Dronabinol 2.5mg Cap ORAL SCH ×4 (08:44→18:00)
[2018-10-13] MEDS: Cefepime HCl 2 GM in D5W 110 ML IV SCH (08:44)
[2018-10-13] MEDS: Heparin 5000 units/ml inj SUBQ SCH ×2 (08:51→21:01)
[2018-10-13 12:00] VITALS: BP 149/110
--- NOTE | 2018-10-13 13:09 | Infectious Diseases Prog Note ---
Assessment/Plan Assessment/Plan Abx: Ceftriaxone x1 10/11 Cefepime 10/12- IV Vancomycin 10/11- Assessment: Afebrile Mild leukopenia Pyuria/bacteriuria- ?UTI ( no symptoms but potentially immunocompromised; we don 't know details about her HIV control status) -u/a wbc 60-80,n it +, leuk +3; UCx >100k ESBL E.coli (S ertapenem, ZOsyn) -CXR: Evidence of bullous COPD.Very questionable faint patchy infiltrate at the right lung base. No acute process otherwise Gram positive bacteremia- real vs contaminant -Bcx / (from same set) GPC clusters UDS+ cocaine Homeless HIV- unknown CD4, VL and Medication regimen HTN Plan: -Switch empiric IV Cefepime #2 to ZOsyn #1/3 FOR ESBL E.coli -REsume IV Vancomycin #3 for gram positive bacteremia pending ID and repeat Bcx -10/12 SP IV Vancomycin #2 -Bcx x2 -f/u cx -Monitor CBC/CMP, temperatures -f/u HIV VL and CD4 ,hep serologies, RPR, GC/CL Thank you for this consultation. Will continue to follow along with you. Discussed with RN. Subjective Allergies: Coded Allergies: No Known Allergies (Unverified , 10/01/18) Objective Vital Signs Last 24 Hour Vital Signs Date Time Temp Pulse Resp B/P (MAP) Pulse Ox O2 Delivery O2 Flow Rate FiO2 10/13/18 12:00 97.1 127 20 149/110 (123) 89 10/13/18 09:00 Room Air 10/13/18 08:00 97.3 124 20 119/89 (99) 90 10/13/18 05:37 150/107 10/13/18 04:15 114 10/13/18 04:15 98.8 20 150/107 (121) 94 10/12/18 21:00 Room Air 10/12/18 20:00 98.2 107 18 119/89 (99) 97 10/12/18 16:00 97.7 18 120/94 (103) 96 Height (Feet): 5 Height (Inches): 3.00 Weight (Pounds): 100 Objective General Appearance: no apparent distress, alert, non-toxic, cachetic Head: normocephalic, atraumatic Eyes: bilateral eye normal inspection, bilateral eye PERRL ENT: hearing grossly normal, normal pharynx, no angioedema, normal voice Neck: full range of motion, supple/symm/no masses Respiratory: chest non-tender, lungs clear, normal breath sounds, no respiratory distress, no retraction, no accessory muscle use, speaking full sentences Cardiovascular #1: regular rate, rhythm, no edema Gastrointestinal: normal bowel sounds, non tender, soft, non-distended, no guarding, no rebound Rectal: deferred Musculoskeletal: back normal, normal range of motion, non-tender Neurologic: alert, oriented x3, responsive, motor strength/tone normal, sensory intact, speech normal Skin: normal color, no rash, warm/dry, well hydrated Microbiology Date/Time Source Procedure Growth Status 10/11/18 17:10 Blood Blood Culture - Preliminary NO GROWTH AFTER 24 HOURS Resulted 10/11/18 17:07 Blood Blood Culture - Preliminary Gram Positive Cocci Resulted 10/11/18 17:30 Urine,Clean Catch Urine Culture - Final Escherichia Coli - Esbl Complete 10/11/18 22:16 Rectum Received Laboratory Tests Test 10/13/18 05:10 White Blood Count Pending Lymphocytes Pending Percent CD3 Cells Pending Absolute CD3 Count Pending Percent CD4 Cells Pending Absolute CD4 Count Pending T-Lymphocyte CD4/CD8 Ratio Pending Percent CD8 Cells Pending Absolute CD8 Count Pending Rapid Plasma Reagin Pending Hepatitis A IgM Antibody Pending Hepatitis B Surface Antigen Pending Hepatitis B Core IgM Antibody Pending Hepatitis C Antibody Pending HIV-1 RNA (PCR) log10 Value Pending HIV-1 RNA Ultraquantitative (PCR) Pending Current Medications Medications (Trade) Dose Ordered Sig/Diaz Route PRN Reason Start Time Stop Time Status Last Admin Dose Admin Acetaminophen (Tylenol) 650 mg Q4H PRN ORAL fever 10/11/18 21:45 11/10/18 21:44 Albuterol/ Ipratropium (Albuterol/ Ipratropium) 3 ml Q4H PRN HHN Shortness of Breath 10/11/18 21:45 10/16/18 21:44 Cefepime HCl 2 gm/ Dextrose 110 ml @ 220 mls/hr EVERY 12 HOURS IV 10/12/18 09:00 10/19/18 08:59 10/13/18 08:44 Clonidine HCl (Catapres Tab) 0.1 mg Q6H PRN ORAL SBP > 160 mm Hg 10/12/18 07:01 11/11/18 07:00 10/13/18 05:37 Dronabinol (Marinol) 2.5 mg TID ORAL 10/12/18 13:00 11/11/18 12:59 10/13/18 08:44 Heparin Sodium (Porcine) (Heparin 5000 units/ml) 5,000 units EVERY 12 HOURS SUBQ 10/12/18 09:00 11/11/18 08:59 10/13/18 08:51 Morphine Sulfate (Morphine Sulfate) 2 mg Q4H PRN IVP Moderate Pain (Pain Scale 4-6) 10/11/18 21:45 10/18/18 21:44 Ondansetron HCl (Zofran) 4 mg Q6H PRN IVP Nausea & Vomiting 10/11/18 21:45 11/10/18 21:44 Phenazopyridine HCl (Pyridium) 100 mg DAILYPRN PRN ORAL dysuria 10/11/18 21:45 11/10/18 21:44 Polyethylene Glycol (Miralax) 17 gm DAILYPRN PRN ORAL Constipation 10/11/18 21:45 11/10/18 21:44 Temazepam (Restoril) 15 mg HSPRN PRN ORAL Insomnia 10/11/18 21:45 10/18/18 21:44 Marah Vo M.D. Oct 13, 2018 13:09
[2018-10-13] MEDS ORDERED: Piperacillin/Tazobactam 3.375 GM in NS 110 ML IVPB SCH (14:00)
[2018-10-13] MEDS ORDERED: Morphine Sulfate 2mg/ml Inj(IV/IM USE ONLY) IVP PRN (14:26)
[2018-10-13] MEDS ORDERED: Miralax 17gm pkt ORAL PRN (14:26)
[2018-10-13 14:30] VITALS: BP 106/90
--- NOTE | 2018-10-13 15:29 | Diagnostic Imaging Report ---
Indication: Cough Technique: One view of the chest Comparison: 10/11/2018 Findings: There is increased consolidation of the right mid and lower lung. The pleural spaces and left lung remain clear. Large bulla again demonstrated in the right upper lobe. Generalized hyperinflation again demonstrated. The heart size is normal. Impression: Increasing right mid and lower lung infiltrate, likely pneumonia.
[2018-10-13 16:00] VITALS: BP 137/91
--- NOTE | 2018-10-13 16:57 | Cardiology Progress Note ---
Assessment/Plan Assessment/Plan tachy hypoxemia hiv htn malnutrition uti ? pneumonia pulm htn need to [facility] pulm embolism in this setting ? v/q vs ctpa [id number] Objective Last 24 Hour Vital Signs Date Time Temp Pulse Resp B/P (MAP) Pulse Ox O2 Delivery O2 Flow Rate FiO2 10/13/18 14:30 97.0 129 20 106/90 (95) 96 10/13/18 12:00 97.1 127 20 149/110 (123) 89 10/13/18 09:00 Room Air 10/13/18 08:00 97.3 124 20 119/89 (99) 90 10/13/18 05:37 150/107 10/13/18 04:15 114 10/13/18 04:15 98.8 20 150/107 (121) 94 10/12/18 21:00 Room Air 10/12/18 20:00 98.2 107 18 119/89 (99) 97 Intake and Output 10/12/18 10/13/18 18:59 06:59 Intake Total 240 ml 490 ml Balance 240 ml 490 ml Intake Oral 240 ml 490 ml # Voids 3 5 # Bowel Movements 2 2 Laboratory Tests Test 10/13/18 05:10 White Blood Count Pending Lymphocytes Pending Percent CD3 Cells Pending Absolute CD3 Count Pending Percent CD4 Cells Pending Absolute CD4 Count Pending T-Lymphocyte CD4/CD8 Ratio Pending Percent CD8 Cells Pending Absolute CD8 Count Pending Rapid Plasma Reagin Pending Hepatitis A IgM Antibody Pending Hepatitis B Surface Antigen Pending Hepatitis B Core IgM Antibody Pending Hepatitis C Antibody Pending HIV-1 RNA (PCR) log10 Value Pending HIV-1 RNA Ultraquantitative (PCR) Pending Microbiology Date/Time Source Procedure Growth Status 10/11/18 17:10 Blood Blood Culture - Preliminary NO GROWTH AFTER 24 HOURS Resulted 10/11/18 17:07 Blood Blood Culture - Preliminary Gram Positive Cocci Resulted 10/11/18 17:30 Urine,Clean Catch Urine Culture - Final Escherichia Coli - Esbl Complete 10/11/18 22:16 Rectum Received Juan Sawyer MD Oct 13, 2018 16:57
[2018-10-13] MEDS ORDERED: Vancomycin 750mg/NS 275ml IVPB SCH ×2 (17:00)
[2018-10-13] MEDS: Vancomycin 750 MG in NS 275 ML IVPB SCH (17:44)
[2018-10-13] MEDS ORDERED: Albuterol/Ipratropium 3ml neb HHN PRN (17:45)
[2018-10-13] MEDS ORDERED: Isovue-300 100ml vial INJ PRN (18:00)
--- NOTE | 2018-10-13 18:47 | Internal Med Progress Note ---
Subjective Date of Service: Oct 13, 2018 Physician Name Abilio Younger Attending Physician Derek Trammell MD Current Medications Medications (Trade) Dose Ordered Sig/Diaz Route PRN Reason Start Time Stop Time Status Last Admin Dose Admin Acetaminophen (Tylenol) 650 mg Q4H PRN ORAL fever 10/13/18 14:26 11/12/18 14:25 Clonidine HCl (Catapres Tab) 0.1 mg Q6H PRN ORAL SBP > 160 mm Hg 10/13/18 14:26 11/12/18 14:25 Dronabinol (Marinol) 2.5 mg TID ORAL 10/13/18 18:00 11/11/18 12:59 Heparin Sodium (Porcine) (Heparin 5000 units/ml) 5,000 units EVERY 12 HOURS SUBQ 10/13/18 21:00 11/11/18 08:59 Iopamidol (Isovue-300 100ml) 100 ml NOW PRN INJ Radiology Procedure 10/13/18 18:00 10/15/18 17:48 Morphine Sulfate (Morphine Sulfate) 2 mg Q4H PRN IVP Moderate Pain (Pain Scale 4-6) 10/13/18 14:26 10/20/18 14:25 Ondansetron HCl (Zofran) 4 mg Q6H PRN IVP Nausea & Vomiting 10/13/18 15:45 11/10/18 21:44 Phenazopyridine HCl (Pyridium) 100 mg DAILYPRN PRN ORAL dysuria 10/13/18 14:26 11/12/18 14:25 Piperacillin Sod/ Tazobactam Sod 3.375 gm/Sodium Chloride 110 ml @ 27.5 mls/hr EVERY 8 HOURS IVPB 10/13/18 22:00 10/16/18 21:59 Polyethylene Glycol (Miralax) 17 gm DAILYPRN PRN ORAL Constipation 10/13/18 14:26 11/12/18 14:25 Temazepam (Restoril) 15 mg HSPRN PRN ORAL Insomnia 10/13/18 14:27 10/20/18 14:26 Vancomycin HCl (Vanco rx to dose) 1 ea DAILY PRN MISC Per rx protocol 10/14/18 09:00 11/12/18 13:14 Vancomycin HCl 750 mg/Sodium Chloride 275 ml @ 183.333 mls/hr Q12HR@0500,1700 IVPB 10/13/18 17:00 10/18/18 16:59 10/13/18 17:44 Allergies: Coded Allergies: No Known Allergies (Unverified , 10/01/18) ROS Limited/Unobtainable: No Constitutional: Reports: weakness HEENT: Reports: no symptoms Cardiovascular: Reports: no symptoms Respiratory: Reports: no symptoms Gastrointestinal/Abdominal: Reports: no symptoms Genitourinary: Reports: no symptoms Neurologic/Psychiatric: Reports: no symptoms Subjective 48 YO F admitted with fatigue. Now UTI and bacteremia. Cover for Int Med-DR Trammell Objective Last Vital Signs Date Time Temp Pulse Resp B/P (MAP) Pulse Ox O2 Delivery O2 Flow Rate FiO2 10/13/18 16:00 98.5 71 16 137/91 (106) 99 10/13/18 09:00 Room Air Laboratory Tests Test 10/13/18 05:10 White Blood Count Pending Lymphocytes Pending Percent CD3 Cells Pending Absolute CD3 Count Pending Percent CD4 Cells Pending Absolute CD4 Count Pending T-Lymphocyte CD4/CD8 Ratio Pending Percent CD8 Cells Pending Absolute CD8 Count Pending Rapid Plasma Reagin Pending Hepatitis A IgM Antibody Pending Hepatitis B Surface Antigen Pending Hepatitis B Core IgM Antibody Pending Hepatitis C Antibody Pending HIV-1 RNA (PCR) log10 Value Pending HIV-1 RNA Ultraquantitative (PCR) Pending Microbiology Date/Time Source Procedure Growth Status 10/11/18 17:10 Blood Blood Culture - Preliminary NO GROWTH AFTER 24 HOURS Resulted 10/11/18 17:07 Blood Blood Culture - Preliminary Gram Positive Cocci Resulted 10/11/18 17:30 Urine,Clean Catch Urine Culture - Final Escherichia Coli - Esbl Complete 10/11/18 22:16 Rectum Received Intake and Output 10/12/18 10/13/18 18:59 06:59 Intake Total 240 ml 490 ml Balance 240 ml 490 ml Intake Oral 240 ml 490 ml # Voids 3 5 # Bowel Movements 2 2 Objective PHYSICAL EXAMINATION: GENERAL: The patient is thin appearing, cachectic female, who is sleeping. HEENT: Eyes, pupils are equal and responsive to light and accommodation. Extraocular movements are intact. NECK: Supple without lymphadenopathy. CHEST: Lungs are clear to auscultation bilaterally without wheezes or rales. CARDIOVASCULAR: Regular rhythm and rate. S1 and S2 are normal without murmurs, rubs, or gallops. ABDOMEN: Soft, nontender, and nondistended. Positive bowel sounds. No evidence of hepatosplenomegaly. Currently, no rebound or guarding noted. EXTREMITIES: Negative for clubbing, cyanosis, or edema. RECTAL/GENITAL: Refused. NEUROLOGIC: Cranial nerves II through XII are grossly intact without focal deficits. Motor strength is 5/5 bilaterally. Deep tendon reflexes are 2+ plantar. Assessment/Plan Assessment/Plan ASSESSMENT: This is a 48-year-old female. 1. Fatigue. 2. Generalized weakness. 3. Urinary tract infection=ESBL E. Coli 4. Human immunodeficiency virus. 5. Hypertension. 6. Cocaine abuse. 7. Bacteremia=gram pos cocci TREATMENT: 1. Urinary tract infection. Urine culture is pending. An Infectious Disease consultation has been obtained with Dr. Vo. Antibiotics=vanco and zosyn. urine culture=ESBL E. coli blood culture-gram pos cocci; await blood culture result 2. Fatigue/generalized weakness. This may be secondary to urinary tract infection and possible pyelonephritis. We will follow recommendations of Infectious Disease. 3. Human immunodeficiency virus as above. An Infectious Disease consultation has been obtained with Dr. Vo. The patient was admitted without ART medication. We will follow recommendation of Infectious Disease. 4. Hypertension. The patient has been placed empirically on clonidine 0.1 mg p.o. q.6 hours p.r.n. 5. History of cocaine abuse. Abilio Younger MD Oct 13, 2018 18:47
[2018-10-13 20:00] VITALS: BP 150/100
[2018-10-13] MEDS: Piperacillin/Tazobactam 3.375 GM in NS 110 ML IVPB SCH (22:16)
--- NOTE | 2018-10-14 03:00 | Consultation ---
DATE OF CONSULTATION: 10/13/2018 CARDIOLOGY CONSULTATION CONSULTING PHYSICIAN: Juan Sawyer M.D. REFERRING PHYSICIAN: Get Terry M.D. REASON FOR REFERRAL: Tachycardia. HISTORY OF PRESENT ILLNESS: This is a middle-aged female who has a history of HIV positive. The patient apparently came into the hospital emergency room, complaining of generalized weakness. Her urine was positive for cocaine and she was admitted to the hospital because of her diagnosis of a urinary tract infection in the setting of immunocompromised state with questionable compliance with medications. Nevertheless, her initial evaluation in the emergency room showed a heart rate of 133 with a blood pressure of 124/92 with oxygen saturation 98% on room air and she was noted to have persistent tachycardia today and her saturation dropped due to this tachycardia. I was notified to see the patient in consultation. The patient is a very poor historian. She denies any chest pain or shortness of breath. No dizziness or lightheadedness or palpitations. PAST MEDICAL HISTORY: She indicates on questioning that she is a diabetic. She has a history of high blood pressure. There is no history of heart attack, no cancer, and no stroke. There is no hepatitis or tuberculosis. She does have HIV on questioning. ALLERGIES: She is not allergic to any medications. SOCIAL HISTORY: She smokes. She does not drink alcoholic beverages, but she does use crack cocaine, the last time she used was approximately two days ago. According to nursing staff, she is actually homeless. REVIEW OF SYSTEMS: GASTROINTESTINAL: She denies any nausea, vomiting, or diarrhea. GENITOURINARY: She denies any discomfort on urination. PULMONARY: She denies any coughing or wheezing. CONSTITUTIONAL: She denies any fever, chills, or night sweats. PHYSICAL EXAMINATION: GENERAL: Shows to be cachectic-looking middle-aged female, looks older than her stated age. There is temporal wasting that is visible. NECK: Supple. LUNGS: Appeared to be clear to auscultation and percussion. CARDIAC: Regular rhythm. No heaves or thrills noted. ABDOMEN: Soft and nontender. Positive bowel sounds. EXTREMITIES: There is no edema. NEUROLOGICAL: She is awake and responsive and she is communicative, and she does move about. LABORATORY AND DIAGNOSTIC DATA: Her white count of 3.7, hemoglobin 14.4, and a platelet count of 197,000. Yesterday, sodium 136, potassium 3.3, chloride 101, bicarbonate 25, BUN of 13, creatinine 0.7, and glucose of 131. Lactic acid initially was 2.3, subsequently 1.8. Calcium is 8.8, troponin of 0.14 two days ago, and albumin of 3.2. Coags, INR of 1.2 and a PTT of 26 a few days ago. Toxicology screen is positive for cocaine. Urinalysis shows evidence of 3+ leukocyte esterase, 60 to 80 wbc's. Her chest x-ray performed today shows an increasing right mid and lower lobe infiltrate, looks likely a pneumonic process. CT scan of the head has been performed, showing negative "no masses." Electrocardiogram shows sinus tachycardia with normal QRS axis and some nonspecific T-wave abnormalities are noted on this EKG. An echocardiogram preliminary report, technically difficult, EF of 70%, hyperdynamic LV systolic function, some septal motion abnormalities, moderate tricuspid regurgitation, pulmonary artery pressure of 72. ASSESSMENT AND PLAN: 1. Tachycardia, sinus in origin. 2. Cocaine abuse. 3. Cachexia. 4. HIV. 5. Urinary tract infection. 6. Malnutrition. 7. Pulmonary hypertension. Dr. Terry, this patient was seen in cardiac consultation. A venous duplex has been ordered and the report is negative. Chest x-ray as noted with possibility of a left-sided infiltrate. She was not acting as if she was having pneumonia when I was visiting her. No coughing and her examination did not show evidence of pneumonia either, however, I think in light of the fact that she has this hypoxemia and tachycardia, her differential diagnosis should include pulmonary embolism and I will go ahead and order a V/Q scan although with the abnormality on the chest x-ray, it is possible that the VQ scan may be interpreted as intermediate probability, she may require pulmonary angiogram. I will discuss this with yourself and consider for options directly. In the meantime, on the monitor, I will try to review her echocardiogram when I have a chance. Intravenous fluids to be administered for the time being. Her blood pressure has been variable between 106/90 to 149/110 with heart rates in the 120s at this time. Juan Sawyer M.D. DR: FELICE JOB#: [id number] CC:
[2018-10-14 04:20] VITALS: BP 153/100
[2018-10-14] MEDS: Vancomycin 750 MG in NS 275 ML IVPB SCH ×2 (04:30→22:00)
[2018-10-14] MEDS: Piperacillin/Tazobactam 3.375 GM in NS 110 ML IVPB SCH ×2 (05:42→13:41)
[2018-10-14 06:39] LABS: BASOPHILS % (AUTO) 0.9 % (0.0-2.0); EOSINOPHILS % (AUTO) 0.1 % (0.0-3.0); HEMATOCRIT 48.7 % (37.0-47.0); HEMOGLOBIN 15.8 G/DL (12.0-16.0); LYMPHOCYTES % (AUTO) 12.8 % (20.0-45.0); MEAN CORPUSCULAR VOLUME 80 FL (80-99); MONOCYTES % (AUTO) 8.6 % (1.0-10.0); NEUTROPHILS % (AUTO) 77.7 % (45.0-75.0); PLATELET COUNT 233 K/UL (150-450); RED BLOOD COUNT 6.05 M/UL (4.20-5.40); RED CELL DISTRIBUTION WIDTH 14.8 % (11.6-14.8); WHITE BLOOD COUNT 4.6 K/UL (4.8-10.8)
[2018-10-14 07:14] LABS: ANION GAP 14 mmol/L (5-15); BLOOD UREA NITROGEN 20 mg/dL (7-18); CALCIUM 9.6 MG/DL (8.5-10.1); CARBON DIOXIDE 21 MMOL/L (21-32); CHLORIDE 103 MMOL/L (98-107); CREATININE 0.8 MG/DL (0.55-1.30); POTASSIUM 3.4 MMOL/L (3.5-5.1); SODIUM 138 MMOL/L (136-145)
[2018-10-14 08:00] VITALS: BP 125/91
[2018-10-14] MEDS: Dronabinol 2.5mg Cap ORAL SCH ×3 (08:50→18:55)
[2018-10-14] MEDS: Heparin 5000 units/ml inj SUBQ SCH ×2 (08:51→21:23)
--- NOTE | 2018-10-14 11:54 | Diagnostic Imaging Report ---
ndication: Tachypnea, tachycardia, decreased oxygen saturation Technique: IV administration nonionic contrast. Spiral acquisitions obtained from the lung bases to the lung apices. Multiplanar and 3-D reconstructions were generated. Total dose length product 521.31 mGycm. CTDIvol(s) 12.55 mGy. Dose reduction achieved using automated exposure control Comparison: none Findings: There is image degradation due to respiratory motion artifact. No definite intraluminal filling defects or other findings to suggest acute pulmonary embolus. There is good quality opacification of the pulmonary arteries. The left main pulmonary artery is ectatic, measuring 28 mm in diameter. No evidence of thoracic aortic aneurysm or dissection. Normal branching anatomy of the great neck vessels, which are patent, nonstenotic. No evidence of right ventricular dilatation. There is mild enlargement of the right atrium and reflux of contrast into the inferior vena cava and hepatic veins. Extensive bullous changes are seen in the upper lungs bilaterally and to a lesser extent the left lower lobe. There is diffuse fairly homogeneous groundglass opacity involving most of the remaining parenchyma. Focal patchy consolidative opacity is seen involving the periphery of the right middle lobe. More extensive consolidation and atelectasis are seen involving much of the right lower lobe. No definite focal infiltrates on the left. There is some atelectasis or scarring medially in the lower lobe. No effusions are demonstrated. There is extensive right hilar lymphadenopathy. Enlarged nodes are somewhat confluent in therefore difficult to measure as discrete entities, largest node appears to be is superior to the middle/lower lobe trunk measuring 3 cm long axis dimension. There is also mediastinal lymphadenopathy. Soft tissue without a discrete border is seen filling the subcarinal region, presumably represents an enlarged lymph node. It demonstrates a central calcification. The heart is normal in size. There is evidence of left ventricular muscular hypertrophy. No pericardial effusion. The thyroid is diffusely heterogeneous without discrete nodule. No axillary or chest wall mass or adenopathy. The included upper abdominal anatomy is unremarkable. Impression: Negative for evidence of acute pulmonary embolus or other acute thoracic vascular pathology Evidence of bullous COPD Diffuse groundglass opacity involving the lung unaffected by the bullae. Most likely, this represents normal lung that is compressed by the space-occupying bullae. Differential considerations for diffuse groundglass opacity include pulmonary edema, hypersensitivity pneumonitis, organizing pneumonia, pulmonary fibrosis Consolidation and atelectasis involving much of the right lower lobe, and patchy consolidation in the right middle lobe. Most likely on the basis of pneumonia. There may be a component of chronic fibrosis as well. Right hilar and subcarinal lymphadenopathy. This could be reactive or neoplastic. The possibility of occult underlying mass within the consolidated lung should be considered Central calcification within the subcarinal lymphadenopathy, suggestive of old granulomatous disease Ectatic left main pulmonary artery, suggestive of although not diagnostic for arterial hypertension Reflux of contrast into the inferior vena cava and hepatic veins, mild right atrial dilatation raises possibility of central venous hypertension Evidence of left ventricular muscular hypertrophy Heterogeneous thyroid without discrete nodule The CT scanner at [facility] is accredited by the [employer] and the scans are performed using protocols designed to limit radiation exposure to as low as reasonably achievable to attain images of sufficient resolution adequate for diagnostic evaluation.
--- NOTE | 2018-10-14 11:58 | Pulmonology Progress Note ---
Assessment/Plan Problems: (1) Pneumonia (2) UTI (urinary tract infection) (3) Cachexia (4) HIV (human immunodeficiency virus infection) (5) Cocaine abuse Assessment/Plan check sputum iv abx CT results pending Methadone for dyspnea Subjective ROS Limited/Unobtainable: No Constitutional: Reports: no symptoms HEENT: Repors: no symptoms Respiratory: Reports: no symptoms Allergies: Coded Allergies: No Known Allergies (Unverified , 10/01/18) Objective Last 24 Hour Vital Signs Date Time Temp Pulse Resp B/P (MAP) Pulse Ox O2 Delivery O2 Flow Rate FiO2 10/14/18 09:00 Room Air 10/14/18 08:47 96 Room Air 21 10/14/18 08:00 97.7 131 20 125/91 (102) 93 10/14/18 08:00 119 10/14/18 07:48 Room Air 21 10/14/18 04:20 99.0 120 16 153/100 (117) 95 10/14/18 04:20 130 10/14/18 00:00 128 10/13/18 21:00 Room Air 10/13/18 20:00 125 10/13/18 20:00 98.9 100 18 150/100 (117) 95 10/13/18 19:31 96 Nasal Cannula 2.0 28 10/13/18 19:31 Nasal Cannula 2.0 28 10/13/18 16:00 98.5 71 16 137/91 (106) 99 10/13/18 15:27 129 10/13/18 14:30 97.0 129 20 106/90 (95) 96 10/13/18 12:00 97.1 127 20 149/110 (123) 89 Intake and Output 10/13/18 10/14/18 19:00 07:00 Intake Total 500 ml Balance 500 ml Intake Oral 500 ml # Voids 2 2 General Appearance: cachetic HEENT: normocephalic, atraumatic Respiratory/Chest: chest wall non-tender, normal breath sounds Breasts: no masses Cardiovascular: normal rate Abdomen: normal bowel sounds, soft, non tender Skin: no lesions Neurologic/Psychiatric: rubber insulator II-XII grossly normal Microbiology Date/Time Source Procedure Growth Status 10/11/18 17:10 Blood Blood Culture - Preliminary NO GROWTH AFTER 48 HOURS Resulted 10/11/18 17:07 Blood Blood Culture - Preliminary Staphylococcus Sp Coag Neg Resulted 10/11/18 22:16 Nasal Nares MRSA Culture - Final NO METHICILLIN RESISTANT STAPH AUREUS... Complete 10/11/18 17:30 Urine,Clean Catch Urine Culture - Final Escherichia Coli - Esbl Complete 10/11/18 22:16 Rectum - Final NO CARBAPENEM-RESISTANT ENTEROBACTERI... Complete 10/11/18 22:16 Rectum VRE Culture - Final NO VANCOMYCIN RESISTANT ENTEROCOCCUS ... Complete Laboratory Tests 10/14/18 05:20: White Blood Count 4.6L, Red Blood Count 6.05H, Hemoglobin 15.8, Hematocrit 48.7H , Mean Corpuscular Volume 80, Mean Corpuscular Hemoglobin 26.2L, Mean Corpuscular Hemoglobin Concent 32.5, Red Cell Distribution Width 14.8, Platelet Count 233, Mean Platelet Volume 7.5, Neutrophils (%) (Auto) 77.7H, Lymphocytes ( %) (Auto) 12.8L, Monocytes (%) (Auto) 8.6, Eosinophils (%) (Auto) 0.1, Basophils (%) (Auto) 0.9, Sodium Level 138, Potassium Level 3.4L, Chloride Level 103, Carbon Dioxide Level 21, Anion Gap 14, Blood Urea Nitrogen 20H, Creatinine 0.8, Estimat Glomerular Filtration Rate > 60, Glucose Level 108H, Calcium Level 9.6 Current Medications Medications (Trade) Dose Ordered Sig/Diaz Route PRN Reason Start Time Stop Time Status Last Admin Dose Admin Acetaminophen (Tylenol) 650 mg Q4H PRN ORAL fever 10/13/18 14:26 11/12/18 14:25 Clonidine HCl (Catapres Tab) 0.1 mg Q6H PRN ORAL SBP > 160 mm Hg 10/13/18 14:26 11/12/18 14:25 Dronabinol (Marinol) 2.5 mg TID ORAL 10/13/18 18:00 11/11/18 12:59 10/14/18 08:50 Heparin Sodium (Porcine) (Heparin 5000 units/ml) 5,000 units EVERY 12 HOURS SUBQ 10/13/18 21:00 11/11/18 08:59 10/14/18 08:51 Iopamidol (Isovue-300 100ml) 100 ml NOW PRN INJ Radiology Procedure 10/13/18 18:00 10/15/18 17:48 Morphine Sulfate (Morphine Sulfate) 2 mg Q4H PRN IVP Moderate Pain (Pain Scale 4-6) 10/13/18 14:26 10/20/18 14:25 Ondansetron HCl (Zofran) 4 mg Q6H PRN IVP Nausea & Vomiting 10/13/18 15:45 11/10/18 21:44 Phenazopyridine HCl (Pyridium) 100 mg DAILYPRN PRN ORAL dysuria 10/13/18 14:26 11/12/18 14:25 Piperacillin Sod/ Tazobactam Sod 3.375 gm/Sodium Chloride 110 ml @ 27.5 mls/hr EVERY 8 HOURS IVPB 10/13/18 22:00 10/16/18 21:59 10/14/18 05:42 Polyethylene Glycol (Miralax) 17 gm DAILYPRN PRN ORAL Constipation 10/13/18 14:26 11/12/18 14:25 Temazepam (Restoril) 15 mg HSPRN PRN ORAL Insomnia 10/13/18 14:27 10/20/18 14:26 Vancomycin HCl (Vanco rx to dose) 1 ea DAILY PRN MISC Per rx protocol 10/14/18 09:00 11/12/18 13:14 Vancomycin HCl 750 mg/Sodium Chloride 275 ml @ 183.333 mls/hr Q12HR@0500,1700 IVPB 10/13/18 17:00 10/18/18 16:59 10/14/18 04:30 Get Terry MD Oct 14, 2018 11:57
[2018-10-14 12:00] VITALS: BP 120/82
--- NOTE | 2018-10-14 12:07 | Diagnostic Imaging Report ---
APPROVED REPORT CPT Code: 80349 Present Symptoms Comments: BILATERAL LEGS PAIN. BILATERAL: Imaging reveals a patent deep venous system bilaterally. There is no evidence of thrombus within the femoral, popliteal or tibial segments. The greater saphenous veins are also within normal limits. Doppler indicates normal spontaneous flow within these segments.
--- NOTE | 2018-10-14 12:30 | Infectious Diseases Prog Note ---
Assessment/Plan Assessment/Plan Abx: Ceftriaxone x1 10/11 Cefepime 10/12- IV Vancomycin 10/11- Assessment: Afebrile Mild leukopenia Probable PNA (per CT, however pt at RA and not coughing)- Pt also potentially immunocompromised- CD4 p- will cover empirically for PCP (+GGO in CT) although she is not behaving like she has PCP PNA -CTA chest: Negative for evidence of acute pulmonary embolus or other acute thoracic vascular pathology. Evidence of bullous COPD. Diffuse groundglass opacity involving the lung unaffected by the bullae. Most likely, this represents normal lung that is compressed by the space-occupying bullae. Differential considerations for diffuse groundglass opacity include pulmonary edema, hypersensitivity pneumonitis, organizing pneumonia, pulmonary fibrosis. Consolidation and atelectasis involving much of the right lower lobe, and patchy consolidation in the right middle lobe. Most likely on the basis of pneumonia. There may be a component of chronic fibrosis as well. Right hilar and subcarinal lymphadenopathy. This could be reactive or neoplastic. The possibility of occult underlying mass within the consolidated lung should be considered Central calcification within the subcarinal lymphadenopathy, suggestive of old granulomatous disease -CXR: Evidence of bullous COPD.Very questionable faint patchy infiltrate at the right lung base. No acute process otherwise Gram positive bacteremia- real vs contaminant -Bcx 2/ (from same set) GPC clusters UDS+ cocaine Homeless HIV- unknown CD4, VL and Medication regimen -RPR, hep panel neg HTN Plan: -Cont ZOsyn #2/7 FOR ESBL E.coli and pNA -REsume IV Vancomycin #4 for gram positive bacteremia pending ID and repeat Bcx and for PNA -Add empiric IV Bactrim waiting CD4 for empiric PCP coverage -10/13 SP Cefepime #2 -f/u repeat Bcx x2 -f/u cx -Monitor CBC/CMP, temperatures -f/u HIV VL and CD4 , GC/CL -Cocci ab, CrAg, PCP DFA, ABG Thank you for this consultation. Will continue to follow along with you. Discussed with RN. Subjective Allergies: Coded Allergies: No Known Allergies (Unverified , 10/01/18) Subjective tachycardic afebrile at Objective Vital Signs Last 24 Hour Vital Signs Date Time Temp Pulse Resp B/P (MAP) Pulse Ox O2 Delivery O2 Flow Rate FiO2 10/14/18 09:00 Room Air 10/14/18 08:47 96 Room Air 21 10/14/18 08:00 97.7 131 20 125/91 (102) 93 10/14/18 08:00 119 10/14/18 07:48 Room Air 21 10/14/18 04:20 99.0 120 16 153/100 (117) 95 10/14/18 04:20 130 10/14/18 00:00 128 10/13/18 21:00 Room Air 10/13/18 20:00 125 10/13/18 20:00 98.9 100 18 150/100 (117) 95 10/13/18 19:31 96 Nasal Cannula 2.0 28 10/13/18 19:31 Nasal Cannula 2.0 28 10/13/18 16:00 98.5 71 16 137/91 (106) 99 10/13/18 15:27 129 10/13/18 14:30 97.0 129 20 106/90 (95) 96 Height (Feet): 5 Height (Inches): 3.00 Weight (Pounds): 100 Objective General Appearance: no apparent distress, alert, non-toxic, cachetic Head: normocephalic, atraumatic Eyes: bilateral eye normal inspection, bilateral eye PERRL ENT: hearing grossly normal, normal pharynx, no angioedema, normal voice Neck: full range of motion, supple/symm/no masses Respiratory: chest non-tender, lungs clear, normal breath sounds, no respiratory distress, no retraction, no accessory muscle use, speaking full sentences Cardiovascular #1: regular rate, rhythm, no edema Gastrointestinal: normal bowel sounds, non tender, soft, non-distended, no guarding, no rebound Rectal: deferred Musculoskeletal: back normal, normal range of motion, non-tender Neurologic: alert, oriented x3, responsive, motor strength/tone normal, sensory intact, speech normal Skin: normal color, no rash, warm/dry, well hydrated Microbiology Date/Time Source Procedure Growth Status 10/11/18 17:10 Blood Blood Culture - Preliminary NO GROWTH AFTER 48 HOURS Resulted 10/11/18 17:07 Blood Blood Culture - Preliminary Staphylococcus Sp Coag Neg Resulted 10/11/18 22:16 Nasal Nares MRSA Culture - Final NO METHICILLIN RESISTANT STAPH AUREUS... Complete 10/11/18 17:30 Urine,Clean Catch Urine Culture - Final Escherichia Coli - Esbl Complete 10/11/18 22:16 Rectum - Final NO CARBAPENEM-RESISTANT ENTEROBACTERI... Complete 10/11/18 22:16 Rectum VRE Culture - Final NO VANCOMYCIN RESISTANT ENTEROCOCCUS ... Complete Laboratory Tests Test 10/14/18 05:20 White Blood Count 4.6 K/UL (4.8-10.8) L Red Blood Count 6.05 M/UL (4.20-5.40) H Hemoglobin 15.8 G/DL (12.0-16.0) Hematocrit 48.7 % (37.0-47.0) H Mean Corpuscular Volume 80 FL (80-99) Mean Corpuscular Hemoglobin 26.2 PG (27.0-31.0) L Mean Corpuscular Hemoglobin Concent 32.5 G/DL (32.0-36.0) Red Cell Distribution Width 14.8 % (11.6-14.8) Platelet Count 233 K/UL (150-450) Mean Platelet Volume 7.5 FL (6.5-10.1) Neutrophils (%) (Auto) 77.7 % (45.0-75.0) H Lymphocytes (%) (Auto) 12.8 % (20.0-45.0) L Monocytes (%) (Auto) 8.6 % (1.0-10.0) Eosinophils (%) (Auto) 0.1 % (0.0-3.0) Basophils (%) (Auto) 0.9 % (0.0-2.0) Sodium Level 138 MMOL/L (136-145) Potassium Level 3.4 MMOL/L (3.5-5.1) L Chloride Level 103 MMOL/L (98-107) Carbon Dioxide Level 21 MMOL/L (21-32) Anion Gap 14 mmol/L (5-15) Blood Urea Nitrogen 20 mg/dL (7-18) H Creatinine 0.8 MG/DL (0.55-1.30) Estimat Glomerular Filtration Rate > 60 mL/min (>60) Glucose Level 108 MG/DL (74-106) H Calcium Level 9.6 MG/DL (8.5-10.1) Current Medications Medications (Trade) Dose Ordered Sig/Diaz Route PRN Reason Start Time Stop Time Status Last Admin Dose Admin Acetaminophen (Tylenol) 650 mg Q4H PRN ORAL fever 10/13/18 14:26 11/12/18 14:25 Clonidine HCl (Catapres Tab) 0.1 mg Q6H PRN ORAL SBP > 160 mm Hg 10/13/18 14:26 11/12/18 14:25 Dronabinol (Marinol) 2.5 mg TID ORAL 10/13/18 18:00 11/11/18 12:59 10/14/18 08:50 Heparin Sodium (Porcine) (Heparin 5000 units/ml) 5,000 units EVERY 12 HOURS SUBQ 10/13/18 21:00 11/11/18 08:59 10/14/18 08:51 Iopamidol (Isovue-300 100ml) 100 ml NOW PRN INJ Radiology Procedure 10/13/18 18:00 10/15/18 17:48 Methadone HCl (Methadone HCl) 10 mg Q12H PRN ORAL For Pain 10/14/18 12:00 10/21/18 11:59 Morphine Sulfate (Morphine Sulfate) 2 mg Q4H PRN IVP Moderate Pain (Pain Scale 4-6) 10/13/18 14:26 10/20/18 14:25 Ondansetron HCl (Zofran) 4 mg Q6H PRN IVP Nausea & Vomiting 10/13/18 15:45 11/10/18 21:44 Phenazopyridine HCl (Pyridium) 100 mg DAILYPRN PRN ORAL dysuria 10/13/18 14:26 11/12/18 14:25 Piperacillin Sod/ Tazobactam Sod 3.375 gm/Sodium Chloride 110 ml @ 27.5 mls/hr EVERY 8 HOURS IVPB 10/13/18 22:00 10/16/18 21:59 10/14/18 05:42 Polyethylene Glycol (Miralax) 17 gm DAILYPRN PRN ORAL Constipation 10/13/18 14:26 11/12/18 14:25 Temazepam (Restoril) 15 mg HSPRN PRN ORAL Insomnia 10/13/18 14:27 10/20/18 14:26 Vancomycin HCl (Vanco rx to dose) 1 ea DAILY PRN MISC Per rx protocol 10/14/18 09:00 11/12/18 13:14 Vancomycin HCl 750 mg/Sodium Chloride 275 ml @ 183.333 mls/hr Q12HR@0500,1700 IVPB 10/13/18 17:00 10/18/18 16:59 10/14/18 04:30 Marah Vo M.D. Oct 14, 2018 12:30
[2018-10-14 16:00] VITALS: BP 110/81
[2018-10-14] MEDS: Trimethoprim/Sulfamethoxazole 20 ML in D5W 500ml 550 ML IV SCH (16:29)
--- NOTE | 2018-10-14 16:57 | Internal Med Progress Note ---
Subjective Date of Service: Oct 14, 2018 Physician Name Abilio Younger Attending Physician Derek Trammell MD Current Medications Medications (Trade) Dose Ordered Sig/Diaz Route PRN Reason Start Time Stop Time Status Last Admin Dose Admin Acetaminophen (Tylenol) 650 mg Q4H PRN ORAL fever 10/13/18 14:26 11/12/18 14:25 Clonidine HCl (Catapres Tab) 0.1 mg Q6H PRN ORAL SBP > 160 mm Hg 10/13/18 14:26 11/12/18 14:25 Dronabinol (Marinol) 2.5 mg TID ORAL 10/13/18 18:00 11/11/18 12:59 10/14/18 13:41 Heparin Sodium (Porcine) (Heparin 5000 units/ml) 5,000 units EVERY 12 HOURS SUBQ 10/13/18 21:00 11/11/18 08:59 10/14/18 08:51 Iopamidol (Isovue-300 100ml) 100 ml NOW PRN INJ Radiology Procedure 10/13/18 18:00 10/15/18 17:48 Methadone HCl (Methadone HCl) 10 mg Q12H PRN ORAL For Pain 10/14/18 12:00 10/21/18 11:59 Morphine Sulfate (Morphine Sulfate) 2 mg Q4H PRN IVP Moderate Pain (Pain Scale 4-6) 10/13/18 14:26 10/20/18 14:25 Ondansetron HCl (Zofran) 4 mg Q6H PRN IVP Nausea & Vomiting 10/13/18 15:45 11/10/18 21:44 Phenazopyridine HCl (Pyridium) 100 mg DAILYPRN PRN ORAL dysuria 10/13/18 14:26 11/12/18 14:25 Piperacillin Sod/ Tazobactam Sod 3.375 gm/Sodium Chloride 110 ml @ 27.5 mls/hr EVERY 8 HOURS IVPB 10/13/18 22:00 10/16/18 21:59 10/14/18 13:41 Polyethylene Glycol (Miralax) 17 gm DAILYPRN PRN ORAL Constipation 10/13/18 14:26 11/12/18 14:25 Temazepam (Restoril) 15 mg HSPRN PRN ORAL Insomnia 10/13/18 14:27 10/20/18 14:26 Trimethoprim/ Sulfamethoxazole 20 ml/Dextrose 570 ml @ 380 mls/hr Q8HR@0000,0800,1600 IV 10/14/18 16:00 10/21/18 15:59 10/14/18 16:29 Vancomycin HCl (Vanco rx to dose) 1 ea DAILY PRN MISC Per rx protocol 10/14/18 09:00 11/12/18 13:14 Vancomycin HCl 750 mg/Sodium Chloride 275 ml @ 183.333 mls/hr Q12HR@0500,1700 IVPB 10/13/18 17:00 10/18/18 16:59 10/14/18 04:30 Allergies: Coded Allergies: No Known Allergies (Unverified , 10/01/18) ROS Limited/Unobtainable: No Constitutional: Reports: no symptoms HEENT: Reports: no symptoms Cardiovascular: Reports: no symptoms Respiratory: Reports: no symptoms Gastrointestinal/Abdominal: Reports: no symptoms Genitourinary: Reports: no symptoms Neurologic/Psychiatric: Reports: no symptoms Subjective 48 YO F admitted with fatigue. Now UTI and bacteremia. Cover for Int Med-DR Trammell Objective Last Vital Signs Date Time Temp Pulse Resp B/P (MAP) Pulse Ox O2 Delivery O2 Flow Rate FiO2 10/14/18 12:00 98.4 130 16 120/82 (95) 89 10/14/18 09:00 Room Air 10/14/18 08:47 21 10/13/18 19:31 2.0 Laboratory Tests Test 10/14/18 05:20 10/14/18 13:19 White Blood Count 4.6 K/UL (4.8-10.8) L Red Blood Count 6.05 M/UL (4.20-5.40) H Hemoglobin 15.8 G/DL (12.0-16.0) Hematocrit 48.7 % (37.0-47.0) H Mean Corpuscular Volume 80 FL (80-99) Mean Corpuscular Hemoglobin 26.2 PG (27.0-31.0) L Mean Corpuscular Hemoglobin Concent 32.5 G/DL (32.0-36.0) Red Cell Distribution Width 14.8 % (11.6-14.8) Platelet Count 233 K/UL (150-450) Mean Platelet Volume 7.5 FL (6.5-10.1) Neutrophils (%) (Auto) 77.7 % (45.0-75.0) H Lymphocytes (%) (Auto) 12.8 % (20.0-45.0) L Monocytes (%) (Auto) 8.6 % (1.0-10.0) Eosinophils (%) (Auto) 0.1 % (0.0-3.0) Basophils (%) (Auto) 0.9 % (0.0-2.0) Sodium Level 138 MMOL/L (136-145) Potassium Level 3.4 MMOL/L (3.5-5.1) L Chloride Level 103 MMOL/L (98-107) Carbon Dioxide Level 21 MMOL/L (21-32) Anion Gap 14 mmol/L (5-15) Blood Urea Nitrogen 20 mg/dL (7-18) H Creatinine 0.8 MG/DL (0.55-1.30) Estimat Glomerular Filtration Rate > 60 mL/min (>60) Glucose Level 108 MG/DL (74-106) H Calcium Level 9.6 MG/DL (8.5-10.1) Arterial Blood pH 7.507 (7.350-7.450) Arterial Blood Partial Pressure CO2 20.8 mmHg (35.0-45.0) *L Arterial Blood Partial Pressure O2 52.9 mmHg (75.0-100.0) L Arterial Blood HCO3 16.1 mmol/L (22.0-26.0) *L Arterial Blood Oxygen Saturation 87.2 % (95-100) *L Arterial Blood Base Excess -4.3 (-2-2) L Eleazar Test Positive Microbiology Date/Time Source Procedure Growth Status 10/11/18 17:10 Blood Blood Culture - Preliminary NO GROWTH AFTER 48 HOURS Resulted 10/11/18 17:07 Blood Blood Culture - Preliminary Staphylococcus Sp Coag Neg Resulted 10/11/18 22:16 Nasal Nares MRSA Culture - Final NO METHICILLIN RESISTANT STAPH AUREUS... Complete 10/11/18 17:30 Urine,Clean Catch Urine Culture - Final Escherichia Coli - Esbl Complete 10/11/18 22:16 Rectum - Final NO CARBAPENEM-RESISTANT ENTEROBACTERI... Complete 10/11/18 22:16 Rectum VRE Culture - Final NO VANCOMYCIN RESISTANT ENTEROCOCCUS ... Complete Intake and Output 10/13/18 10/14/18 18:59 06:59 Intake Total 500 ml Balance 500 ml Intake Oral 500 ml # Voids 2 2 Objective PHYSICAL EXAMINATION: GENERAL: The patient is thin appearing, cachectic female, who is sleeping. HEENT: Eyes, pupils are equal and responsive to light and accommodation. Extraocular movements are intact. NECK: Supple without lymphadenopathy. CHEST: Lungs are clear to auscultation bilaterally without wheezes or rales. CARDIOVASCULAR: Regular rhythm and rate. S1 and S2 are normal without murmurs, rubs, or gallops. ABDOMEN: Soft, nontender, and nondistended. Positive bowel sounds. No evidence of hepatosplenomegaly. Currently, no rebound or guarding noted. EXTREMITIES: Negative for clubbing, cyanosis, or edema. RECTAL/GENITAL: Refused. NEUROLOGIC: Cranial nerves II through XII are grossly intact without focal deficits. Motor strength is 5/5 bilaterally. Deep tendon reflexes are 2+ plantar. Assessment/Plan Assessment/Plan ASSESSMENT: This is a 48-year-old female. 1. Fatigue. 2. Generalized weakness. 3. Urinary tract infection=ESBL E. Coli 4. Human immunodeficiency virus. 5. Hypertension. 6. Cocaine abuse. 7. Bacteremia=gram pos cocci TREATMENT: 1. Urinary tract infection. Urine culture is pending. An Infectious Disease consultation has been obtained with Dr. Vo. Antibiotics=vanco and zosyn. urine culture=ESBL E. coli blood culture-gram pos cocci; await blood culture result 2. Fatigue/generalized weakness. This may be secondary to urinary tract infection and possible pyelonephritis. We will follow recommendations of Infectious Disease. 3. Human immunodeficiency virus as above. An Infectious Disease consultation has been obtained with Dr. Vo. The patient was admitted without ART medication. We will follow recommendation of Infectious Disease. 4. Hypertension. The patient has been placed empirically on clonidine 0.1 mg p.o. q.6 hours p.r.n. 5. History of cocaine abuse. 6. Discharge planning Abilio Younger MD Oct 14, 2018 16:57
--- NOTE | 2018-10-14 18:17 | Cardiology Progress Note ---
Assessment/Plan Assessment/Plan 1. Tachycardia, sinus in origin. 2. Cocaine abuse. 3. Cachexia. 4. HIV. 5. Urinary tract infection. 6. Malnutrition. 7. Pulmonary hypertension. 8. Pneumonia ctpa noted no pe has infiltrate id noted empiric abx duplex neg await echo to revwied rv function in light of abn noted on ct regarding suggestion of right heart failure Subjective ROS Limited/Unobtainable: Yes Subjective sleeping Objective Last 24 Hour Vital Signs Date Time Temp Pulse Resp B/P (MAP) Pulse Ox O2 Delivery O2 Flow Rate FiO2 10/14/18 12:00 98.4 130 16 120/82 (95) 89 10/14/18 09:00 Room Air 10/14/18 08:47 96 Room Air 21 10/14/18 08:00 97.7 131 20 125/91 (102) 93 10/14/18 08:00 119 10/14/18 07:48 Room Air 21 10/14/18 04:20 99.0 120 16 153/100 (117) 95 10/14/18 04:20 130 10/14/18 00:00 128 10/13/18 21:00 Room Air 10/13/18 20:00 125 10/13/18 20:00 98.9 100 18 150/100 (117) 95 10/13/18 19:31 96 Nasal Cannula 2.0 28 10/13/18 19:31 Nasal Cannula 2.0 28 General Appearance: no apparent distress Neck: supple Cardiovascular: normal rate Respiratory/Chest: lungs clear, normal breath sounds Abdomen: normal bowel sounds, non tender, soft Extremities: no swelling Intake and Output 10/13/18 10/14/18 18:59 06:59 Intake Total 500 ml Balance 500 ml Intake Oral 500 ml # Voids 2 2 Laboratory Tests Test 10/14/18 05:20 10/14/18 13:19 White Blood Count 4.6 K/UL (4.8-10.8) L Red Blood Count 6.05 M/UL (4.20-5.40) H Hemoglobin 15.8 G/DL (12.0-16.0) Hematocrit 48.7 % (37.0-47.0) H Mean Corpuscular Volume 80 FL (80-99) Mean Corpuscular Hemoglobin 26.2 PG (27.0-31.0) L Mean Corpuscular Hemoglobin Concent 32.5 G/DL (32.0-36.0) Red Cell Distribution Width 14.8 % (11.6-14.8) Platelet Count 233 K/UL (150-450) Mean Platelet Volume 7.5 FL (6.5-10.1) Neutrophils (%) (Auto) 77.7 % (45.0-75.0) H Lymphocytes (%) (Auto) 12.8 % (20.0-45.0) L Monocytes (%) (Auto) 8.6 % (1.0-10.0) Eosinophils (%) (Auto) 0.1 % (0.0-3.0) Basophils (%) (Auto) 0.9 % (0.0-2.0) Sodium Level 138 MMOL/L (136-145) Potassium Level 3.4 MMOL/L (3.5-5.1) L Chloride Level 103 MMOL/L (98-107) Carbon Dioxide Level 21 MMOL/L (21-32) Anion Gap 14 mmol/L (5-15) Blood Urea Nitrogen 20 mg/dL (7-18) H Creatinine 0.8 MG/DL (0.55-1.30) Estimat Glomerular Filtration Rate > 60 mL/min (>60) Glucose Level 108 MG/DL (74-106) H Calcium Level 9.6 MG/DL (8.5-10.1) Arterial Blood pH 7.507 (7.350-7.450) Arterial Blood Partial Pressure CO2 20.8 mmHg (35.0-45.0) *L Arterial Blood Partial Pressure O2 52.9 mmHg (75.0-100.0) L Arterial Blood HCO3 16.1 mmol/L (22.0-26.0) *L Arterial Blood Oxygen Saturation 87.2 % (95-100) *L Arterial Blood Base Excess -4.3 (-2-2) L Eleazar Test Positive Microbiology Date/Time Source Procedure Growth Status 10/11/18 22:16 Nasal Nares MRSA Culture - Final NO METHICILLIN RESISTANT STAPH AUREUS... Complete 10/11/18 22:16 Rectum - Final NO CARBAPENEM-RESISTANT ENTEROBACTERI... Complete 10/11/18 22:16 Rectum VRE Culture - Final NO VANCOMYCIN RESISTANT ENTEROCOCCUS ... Complete Juan Sawyer MD Oct 14, 2018 18:17
[2018-10-14 20:00] VITALS: BP 132/98
[2018-10-15] VITALS (10 sets, daily range): BP systolic 122–165; BP diastolic 81–104
[2018-10-15] MEDS: Piperacillin/Tazobactam 3.375 GM in NS 110 ML IVPB SCH ×5 (00:13→18:00)
[2018-10-15] MEDS: Trimethoprim/Sulfamethoxazole 20 ML in D5W 500ml 550 ML IV SCH ×3 (00:58→16:00)
[2018-10-15 07:49] LABS: HEMATOCRIT 52.6 % (37.0-47.0); HEMOGLOBIN 16.7 G/DL (12.0-16.0); MEAN CORPUSCULAR VOLUME 81 FL (80-99); PLATELET COUNT 210 K/UL (150-450); RED BLOOD COUNT 6.47 M/UL (4.20-5.40); RED CELL DISTRIBUTION WIDTH 15.5 % (11.6-14.8); WHITE BLOOD COUNT 7.4 K/UL (4.8-10.8)
[2018-10-15] MEDS: Dronabinol 2.5mg Cap ORAL SCH (08:29)
[2018-10-15] MEDS: Heparin 5000 units/ml inj SUBQ SCH ×2 (08:29→21:20)
[2018-10-15 09:17] LABS: ANION GAP 12 mmol/L (5-15); BLOOD UREA NITROGEN 16 mg/dL (7-18); CALCIUM 8.6 MG/DL (8.5-10.1); CARBON DIOXIDE 22 MMOL/L (21-32); CHLORIDE 104 MMOL/L (98-107); CREATININE 0.9 MG/DL (0.55-1.30); POTASSIUM 3.8 MMOL/L (3.5-5.1); SODIUM 138 MMOL/L (136-145)
[2018-10-15] MEDS: Vancomycin 750 MG in NS 275 ML IVPB SCH ×2 (10:33→10:37)
--- NOTE | 2018-10-15 14:15 | Pulmonology Progress Note ---
Assessment/Plan Problems: (1) Pneumonia (2) UTI (urinary tract infection) (3) Cachexia (4) HIV (human immunodeficiency virus infection) (5) Cocaine abuse Assessment/Plan worsening more lethargic CD four count reviewed, it is & check sputum iv abx CT results pending Neuro evaluation hold mind altering drugs. Subjective ROS Limited/Unobtainable: No Constitutional: Reports: no symptoms HEENT: Repors: no symptoms Allergies: Coded Allergies: No Known Allergies (Unverified , 10/01/18) Objective Last 24 Hour Vital Signs Date Time Temp Pulse Resp B/P (MAP) Pulse Ox O2 Delivery O2 Flow Rate FiO2 10/15/18 09:00 Venturi Mask 10/15/18 08:00 80 10/15/18 08:00 97.7 74 21 122/81 (95) 96 10/15/18 04:00 88 10/15/18 04:00 97.3 88 18 147/99 (115) 97 10/15/18 00:00 115 10/15/18 00:00 96.8 115 16 138/104 (115) 94 10/14/18 22:13 95 Nasal Cannula 2.0 28 10/14/18 22:13 Nasal Cannula 2.0 28 10/14/18 21:00 Venturi Mask 14.0 10/14/18 20:00 97.2 111 18 132/98 (109) 93 10/14/18 20:00 111 10/14/18 16:00 97.7 125 20 110/81 (91) 89 Intake and Output 10/14/18 10/15/18 19:00 07:00 Intake Total 120 ml Balance 120 ml Intake Oral 120 ml # Voids 2 1 General Appearance: WD/WN HEENT: normocephalic, atraumatic Respiratory/Chest: chest wall non-tender, lungs clear Cardiovascular: normal peripheral pulses, normal rate Abdomen: normal bowel sounds, no organomegaly Genitourinary: normal external genitalia Extremities: no clubbing 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 Microbiology Date/Time Source Procedure Growth Status 10/13/18 17:15 Blood Blood Culture - Preliminary NO GROWTH AFTER 24 HOURS Resulted 10/13/18 17:00 Blood Blood Culture - Preliminary NO GROWTH AFTER 24 HOURS Resulted Laboratory Tests 10/15/18 05:48: White Blood Count 7.4#, Red Blood Count 6.47H, Hemoglobin 16.7H, Hematocrit 52.6H, Mean Corpuscular Volume 81, Mean Corpuscular Hemoglobin 25.9L, Mean Corpuscular Hemoglobin Concent 31.8L, Red Cell Distribution Width 15.5H, Platelet Count 210, Mean Platelet Volume 7.2, Neutrophils (%) (Auto) , Lymphocytes (%) (Auto) , Monocytes (%) (Auto) , Eosinophils (%) (Auto) , Basophils (%) (Auto) , Differential Total Cells Counted 100, Neutrophils % ( Manual) 91H, Lymphocytes % (Manual) 4L, Monocytes % (Manual) 5, Eosinophils % ( Manual) 0, Basophils % (Manual) 0, Band Neutrophils 0, Platelet Estimate Adequate, Platelet Morphology Normal, Anisocytosis 1+ 10/15/18 08:35: Sodium Level 138, Potassium Level 3.8, Chloride Level 104, Carbon Dioxide Level 22, Anion Gap 12, Blood Urea Nitrogen 16, Creatinine 0.9, Estimat Glomerular Filtration Rate > 60, Glucose Level 112H, Calcium Level 8.6, Coccidioides Antibody (Comp Fix) [Pending] Current Medications Medications (Trade) Dose Ordered Sig/Diaz Route PRN Reason Start Time Stop Time Status Last Admin Dose Admin Acetaminophen (Tylenol) 650 mg Q4H PRN ORAL fever 10/13/18 14:26 11/12/18 14:25 Clonidine HCl (Catapres Tab) 0.1 mg Q6H PRN ORAL SBP > 160 mm Hg 10/13/18 14:26 11/12/18 14:25 Dronabinol (Marinol) 2.5 mg TID ORAL 10/13/18 18:00 11/11/18 12:59 10/15/18 08:29 Heparin Sodium (Porcine) (Heparin 5000 units/ml) 5,000 units EVERY 12 HOURS SUBQ 10/13/18 21:00 11/11/18 08:59 10/15/18 08:29 Iopamidol (Isovue-300 100ml) 100 ml NOW PRN INJ Radiology Procedure 10/13/18 18:00 10/15/18 17:48 Methadone HCl (Methadone HCl) 10 mg Q12H PRN ORAL For Pain 10/14/18 12:00 10/21/18 11:59 Morphine Sulfate (Morphine Sulfate) 2 mg Q4H PRN IVP Moderate Pain (Pain Scale 4-6) 10/13/18 14:26 10/20/18 14:25 Ondansetron HCl (Zofran) 4 mg Q6H PRN IVP Nausea & Vomiting 10/13/18 15:45 11/10/18 21:44 Phenazopyridine HCl (Pyridium) 100 mg DAILYPRN PRN ORAL dysuria 10/13/18 14:26 11/12/18 14:25 Piperacillin Sod/ Tazobactam Sod 3.375 gm/Sodium Chloride 110 ml @ 220 mls/hr Q6HR IVPB 10/15/18 00:00 10/22/18 00:00 10/15/18 12:10 Polyethylene Glycol (Miralax) 17 gm DAILYPRN PRN ORAL Constipation 10/13/18 14:26 11/12/18 14:25 Temazepam (Restoril) 15 mg HSPRN PRN ORAL Insomnia 10/13/18 14:27 10/20/18 14:26 Trimethoprim/ Sulfamethoxazole 20 ml/Dextrose 570 ml @ 380 mls/hr Q8HR@0000,0800,1600 IV 10/14/18 16:00 10/21/18 15:59 10/15/18 08:28 Vancomycin HCl (Vanco rx to dose) 1 ea DAILY PRN MISC Per rx protocol 10/14/18 09:00 11/12/18 13:14 Vancomycin HCl 750 mg/Sodium Chloride 275 ml @ 183.333 mls/hr Q12H IVPB 10/14/18 22:00 10/19/18 21:59 10/15/18 10:37 Get Terry MD Oct 15, 2018 14:15
--- NOTE | 2018-10-15 14:40 | Cardiology Report ---
APPROVED REPORT EXAM: Two-dimensional and M-mode echocardiogram with Doppler and color Doppler. INDICATION Arrhythmia Tachycardia M-Mode DIMENSIONS IVSd1.1 (0.7-1.1cm)Left Atrium (MM)1.7 (1.6-4.0cm) LVDd2.8 (3.5-5.6cm)Aortic Root2.1 (2.0-3.7cm) PWd1.4 (0.7-1.1cm)Aortic Cusp Exc.1.7 (1.5-2.0cm) IVSs1.6 cm LVDs1.8 (2.5-4.0cm) PWs2.0 cm Technically difficult study due to pts position. All views obtained are subcostal views only. Normal left ventricular chamber size, hyperdynamic systolic function. Abnormal motion of the anteroseptal wall most likely due to increased R sided pressures. All other remaning segments seem to have normal wall motion to extent visualized. Left ventricular ejection fraction estimated to be 70-80%. Mild left ventricular hypertrophy. No evidence of pericardial effusion. All other cardiac chamber sizes are within normal limits. Mild focal aortic valve sclerosis with adequate cusp excursion. Mildly thickened mitral valve leaflets with normal excursion. Mitral annulus and aortic root calcification. Pulmonic valve not well visualized. Normal tricuspid valve structure. IVC at normal size with physiologic collapse. A color flow and spectral Doppler study was performed and revealed: Trace mitral regurgitation. Mitral diastolic velocities suggest reduced left ventricular relaxation c/w mild LV diastolic dysfunction (Grade I). Moderate tricuspid regurgitation. Tricuspid systolic velocities suggests peak right ventricular systolic pressure of 72 mmHg, consistent with severe pulmonary hypertension.
--- NOTE | 2018-10-15 15:12 | Infectious Diseases Prog Note ---
Assessment/Plan Assessment/Plan Abx: Ceftriaxone x1 10/11 Cefepime 10/12- IV Vancomycin 10/11- Assessment: Afebrile Mild leukopenia PNA -high suspicion for PCP given Cd4 7, GGO on CT, hypoxia and elevated gradient -hypoxic w/ elevated A-a gradient at 70 -CTA chest: Negative for evidence of acute pulmonary embolus or other acute thoracic vascular pathology. Evidence of bullous COPD. Diffuse groundglass opacity involving the lung unaffected by the bullae. Most likely, this represents normal lung that is compressed by the space-occupying bullae. Differential considerations for diffuse groundglass opacity include pulmonary edema, hypersensitivity pneumonitis, organizing pneumonia, pulmonary fibrosis. Consolidation and atelectasis involving much of the right lower lobe, and patchy consolidation in the right middle lobe. Most likely on the basis of pneumonia. There may be a component of chronic fibrosis as well. Right hilar and subcarinal lymphadenopathy. This could be reactive or neoplastic. The possibility of occult underlying mass within the consolidated lung should be considered Central calcification within the subcarinal lymphadenopathy, suggestive of old granulomatous disease -CXR: Evidence of bullous COPD.Very questionable faint patchy infiltrate at the right lung base. No acute process otherwise Gram positive bacteremia- real vs contaminant -Bcx 2/ (from same set) S capitis, S Epi; repeat Bcx NTD UDS+ cocaine Homeless HIV/AIDS- Cd4 7 (1.1L)-unknown prior regimen and unknown where she follows for HIV- pt unable to provide hx) -RPR, hep panel neg -VL p HTN Plan: -Cont ZOsyn #3/7 FOR ESBL E.coli and pNA -REsume IV Vancomycin #5 for gram positive bacteremia pending ID and repeat Bcx and for PNA -Add empiric IV Bactrim #2 waiting CD4 and for empiric PCP coverage -Given hypoxia and elevated A-a will also add prednisone -40mg bid x 5 days then, -40mg qd x5 days then, -20mg qd for 11 days -monitor Cr, K -10/13 SP Cefepime #2 -f/u repeat Bcx x2 -f/u cx -Monitor CBC/CMP, temperatures -f/u HIV VL, GC/CL, Cocci ab, CrAg, PCP DFA -HIV genotype Thank you for this consultation. Will continue to follow along with you. Discussed with RN. Subjective Allergies: Coded Allergies: No Known Allergies (Unverified , 10/01/18) Subjective tachycardia improved hypoxic on ABG; now on VM afebrile Objective Vital Signs Last 24 Hour Vital Signs Date Time Temp Pulse Resp B/P (MAP) Pulse Ox O2 Delivery O2 Flow Rate FiO2 10/15/18 12:00 97.9 89 17 134/87 (103) 92 10/15/18 09:00 Venturi Mask 10/15/18 08:00 80 10/15/18 08:00 97.7 74 21 122/81 (95) 96 10/15/18 04:00 88 10/15/18 04:00 97.3 88 18 147/99 (115) 97 10/15/18 00:00 115 10/15/18 00:00 96.8 115 16 138/104 (115) 94 10/14/18 22:13 95 Nasal Cannula 2.0 28 10/14/18 22:13 Nasal Cannula 2.0 28 10/14/18 21:00 Venturi Mask 14.0 10/14/18 20:00 97.2 111 18 132/98 (109) 93 10/14/18 20:00 111 10/14/18 16:00 97.7 125 20 110/81 (91) 89 Height (Feet): 5 Height (Inches): 3.00 Weight (Pounds): 100 Objective General Appearance: no apparent distress, alert, non-toxic, cachetic Head: normocephalic, atraumatic Eyes: bilateral eye normal inspection, bilateral eye PERRL ENT: hearing grossly normal, normal pharynx, no angioedema, normal voice Neck: full range of motion, supple/symm/no masses Respiratory: chest non-tender, lungs clear, normal breath sounds, no respiratory distress, no retraction, no accessory muscle use, speaking full sentences Cardiovascular #1: regular rate, rhythm, no edema Gastrointestinal: normal bowel sounds, non tender, soft, non-distended, no guarding, no rebound Rectal: deferred Musculoskeletal: back normal, normal range of motion, non-tender Neurologic: alert, oriented x3, responsive, motor strength/tone normal, sensory intact, speech normal Skin: normal color, no rash, warm/dry, well hydrated Microbiology Date/Time Source Procedure Growth Status 10/13/18 17:15 Blood Blood Culture - Preliminary NO GROWTH AFTER 24 HOURS Resulted 10/13/18 17:00 Blood Blood Culture - Preliminary NO GROWTH AFTER 24 HOURS Resulted Laboratory Tests Test 10/15/18 05:48 10/15/18 08:35 White Blood Count 7.4 K/UL (4.8-10.8) # Red Blood Count 6.47 M/UL (4.20-5.40) H Hemoglobin 16.7 G/DL (12.0-16.0) H Hematocrit 52.6 % (37.0-47.0) H Mean Corpuscular Volume 81 FL (80-99) Mean Corpuscular Hemoglobin 25.9 PG (27.0-31.0) L Mean Corpuscular Hemoglobin Concent 31.8 G/DL (32.0-36.0) L Red Cell Distribution Width 15.5 % (11.6-14.8) H Platelet Count 210 K/UL (150-450) Mean Platelet Volume 7.2 FL (6.5-10.1) Neutrophils (%) (Auto) % (45.0-75.0) Lymphocytes (%) (Auto) % (20.0-45.0) Monocytes (%) (Auto) % (1.0-10.0) Eosinophils (%) (Auto) % (0.0-3.0) Basophils (%) (Auto) % (0.0-2.0) Differential Total Cells Counted 100 Neutrophils % (Manual) 91 % (45-75) H Lymphocytes % (Manual) 4 % (20-45) L Monocytes % (Manual) 5 % (1-10) Eosinophils % (Manual) 0 % (0-3) Basophils % (Manual) 0 % (0-2) Band Neutrophils 0 % (0-8) Platelet Estimate Adequate Platelet Morphology Normal Anisocytosis 1+ Sodium Level 138 MMOL/L (136-145) Potassium Level 3.8 MMOL/L (3.5-5.1) Chloride Level 104 MMOL/L (98-107) Carbon Dioxide Level 22 MMOL/L (21-32) Anion Gap 12 mmol/L (5-15) Blood Urea Nitrogen 16 mg/dL (7-18) Creatinine 0.9 MG/DL (0.55-1.30) Estimat Glomerular Filtration Rate > 60 mL/min (>60) Glucose Level 112 MG/DL (74-106) H Calcium Level 8.6 MG/DL (8.5-10.1) Coccidioides Antibody (Comp Fix) Pending Current Medications Medications (Trade) Dose Ordered Sig/Diaz Route PRN Reason Start Time Stop Time Status Last Admin Dose Admin Acetaminophen (Tylenol) 650 mg Q4H PRN ORAL fever 10/13/18 14:26 11/12/18 14:25 Clonidine HCl (Catapres Tab) 0.1 mg Q6H PRN ORAL SBP > 160 mm Hg 10/13/18 14:26 11/12/18 14:25 Heparin Sodium (Porcine) (Heparin 5000 units/ml) 5,000 units EVERY 12 HOURS SUBQ 10/13/18 21:00 11/11/18 08:59 10/15/18 08:29 Iopamidol (Isovue-300 100ml) 100 ml NOW PRN INJ Radiology Procedure 10/13/18 18:00 10/15/18 17:48 Morphine Sulfate (Morphine Sulfate) 2 mg Q4H PRN IVP Moderate Pain (Pain Scale 4-6) 10/13/18 14:26 10/20/18 14:25 Ondansetron HCl (Zofran) 4 mg Q6H PRN IVP Nausea & Vomiting 10/13/18 15:45 11/10/18 21:44 Piperacillin Sod/ Tazobactam Sod 3.375 gm/Sodium Chloride 110 ml @ 220 mls/hr Q6HR IVPB 10/15/18 00:00 10/22/18 00:00 10/15/18 12:10 Polyethylene Glycol (Miralax) 17 gm DAILYPRN PRN ORAL Constipation 10/13/18 14:26 11/12/18 14:25 Trimethoprim/ Sulfamethoxazole 20 ml/Dextrose 570 ml @ 380 mls/hr Q8HR@0000,0800,1600 IV 10/14/18 16:00 10/21/18 15:59 10/15/18 08:28 Vancomycin HCl (Vanco rx to dose) 1 ea DAILY PRN MISC Per rx protocol 10/14/18 09:00 11/12/18 13:14 Vancomycin HCl 750 mg/Sodium Chloride 275 ml @ 183.333 mls/hr Q12H IVPB 10/14/18 22:00 10/19/18 21:59 10/15/18 10:37 Marah Vo M.D. Oct 15, 2018 15:11
--- NOTE | 2018-10-15 15:52 | Cardiology Report ---
APPROVED REPORT EKG Measurement Heart [id number] Sinus tachycardia Possible Left atrial enlargement Indeterminate axis T wave abnormality, consider inferolateral ischemia Abnormal ECG
--- NOTE | 2018-10-15 16:31 | Cardiology Progress Note ---
Assessment/Plan Assessment/Plan 1. Tachycardia, sinus in origin. 2. Cocaine abuse. 3. Cachexia. 4. HIV. 5. Urinary tract infection. 6. Malnutrition. 7. Pulmonary hypertension. 8. Pneumonia 9. AMS ctpa noted no pe has infiltrate id noted empiric abx duplex neg echo showed normal lv fucntion , phtn no rv enlargmetn noted on the report mentally worse agre with neuro eval Subjective ROS Limited/Unobtainable: Yes Subjective sleeping Objective Last 24 Hour Vital Signs Date Time Temp Pulse Resp B/P (MAP) Pulse Ox O2 Delivery O2 Flow Rate FiO2 10/15/18 14:00 86 10/15/18 12:00 97.9 89 17 134/87 (103) 92 10/15/18 09:00 Venturi Mask 10/15/18 08:00 80 10/15/18 08:00 97.7 74 21 122/81 (95) 96 10/15/18 04:00 88 10/15/18 04:00 97.3 88 18 147/99 (115) 97 10/15/18 00:00 115 10/15/18 00:00 96.8 115 16 138/104 (115) 94 10/14/18 22:13 95 Nasal Cannula 2.0 28 10/14/18 22:13 Nasal Cannula 2.0 28 10/14/18 21:00 Venturi Mask 14.0 10/14/18 20:00 97.2 111 18 132/98 (109) 93 10/14/18 20:00 111 General Appearance: no apparent distress Neck: supple Cardiovascular: regular rhythm Respiratory/Chest: rhonchi - bilaterally Abdomen: normal bowel sounds, non tender, soft Extremities: no swelling Intake and Output 10/14/18 10/15/18 19:00 07:00 Intake Total 120 ml Balance 120 ml Intake Oral 120 ml # Voids 2 1 Laboratory Tests Test 10/15/18 05:48 10/15/18 08:35 White Blood Count 7.4 K/UL (4.8-10.8) # Red Blood Count 6.47 M/UL (4.20-5.40) H Hemoglobin 16.7 G/DL (12.0-16.0) H Hematocrit 52.6 % (37.0-47.0) H Mean Corpuscular Volume 81 FL (80-99) Mean Corpuscular Hemoglobin 25.9 PG (27.0-31.0) L Mean Corpuscular Hemoglobin Concent 31.8 G/DL (32.0-36.0) L Red Cell Distribution Width 15.5 % (11.6-14.8) H Platelet Count 210 K/UL (150-450) Mean Platelet Volume 7.2 FL (6.5-10.1) Neutrophils (%) (Auto) % (45.0-75.0) Lymphocytes (%) (Auto) % (20.0-45.0) Monocytes (%) (Auto) % (1.0-10.0) Eosinophils (%) (Auto) % (0.0-3.0) Basophils (%) (Auto) % (0.0-2.0) Differential Total Cells Counted 100 Neutrophils % (Manual) 91 % (45-75) H Lymphocytes % (Manual) 4 % (20-45) L Monocytes % (Manual) 5 % (1-10) Eosinophils % (Manual) 0 % (0-3) Basophils % (Manual) 0 % (0-2) Band Neutrophils 0 % (0-8) Platelet Estimate Adequate Platelet Morphology Normal Anisocytosis 1+ Sodium Level 138 MMOL/L (136-145) Potassium Level 3.8 MMOL/L (3.5-5.1) Chloride Level 104 MMOL/L (98-107) Carbon Dioxide Level 22 MMOL/L (21-32) Anion Gap 12 mmol/L (5-15) Blood Urea Nitrogen 16 mg/dL (7-18) Creatinine 0.9 MG/DL (0.55-1.30) Estimat Glomerular Filtration Rate > 60 mL/min (>60) Glucose Level 112 MG/DL (74-106) H Calcium Level 8.6 MG/DL (8.5-10.1) Coccidioides Antibody (Comp Fix) Pending Microbiology Date/Time Source Procedure Growth Status 10/13/18 17:15 Blood Blood Culture - Preliminary NO GROWTH AFTER 24 HOURS Resulted 10/13/18 17:00 Blood Blood Culture - Preliminary NO GROWTH AFTER 24 HOURS Resulted Juan Sawyer MD Oct 15, 2018 16:30
--- NOTE | 2018-10-15 17:12 | Internal Med Progress Note ---
Subjective Physician Name Derek Trammell Attending Physician Derek Trammell MD Current Medications Medications (Trade) Dose Ordered Sig/Diaz Route PRN Reason Start Time Stop Time Status Last Admin Dose Admin Acetaminophen (Tylenol) 650 mg Q4H PRN ORAL fever 10/13/18 14:26 11/12/18 14:25 Clonidine HCl (Catapres Tab) 0.1 mg Q6H PRN ORAL SBP > 160 mm Hg 10/13/18 14:26 11/12/18 14:25 Heparin Sodium (Porcine) (Heparin 5000 units/ml) 5,000 units EVERY 12 HOURS SUBQ 10/13/18 21:00 11/11/18 08:59 10/15/18 08:29 Iopamidol (Isovue-300 100ml) 100 ml NOW PRN INJ Radiology Procedure 10/13/18 18:00 10/15/18 17:48 Morphine Sulfate (Morphine Sulfate) 2 mg Q4H PRN IVP Moderate Pain (Pain Scale 4-6) 10/13/18 14:26 10/20/18 14:25 Ondansetron HCl (Zofran) 4 mg Q6H PRN IVP Nausea & Vomiting 10/13/18 15:45 11/10/18 21:44 Piperacillin Sod/ Tazobactam Sod 3.375 gm/Sodium Chloride 110 ml @ 220 mls/hr Q6HR IVPB 10/15/18 00:00 10/22/18 00:00 10/15/18 12:10 Polyethylene Glycol (Miralax) 17 gm DAILYPRN PRN ORAL Constipation 10/13/18 14:26 11/12/18 14:25 Prednisone (predniSONE) 20 mg DAILY ORAL 10/26/18 08:00 11/05/18 23:59 Prednisone (predniSONE) 40 mg BID ORAL 10/15/18 18:00 10/20/18 10:00 Prednisone (predniSONE) 40 mg DAILY ORAL 10/21/18 08:00 10/25/18 23:59 Trimethoprim/ Sulfamethoxazole 20 ml/Dextrose 570 ml @ 380 mls/hr Q8HR@0000,0800,1600 IV 10/14/18 16:00 10/21/18 15:59 10/15/18 08:28 Vancomycin HCl (Vanco rx to dose) 1 ea DAILY PRN MISC Per rx protocol 4/25/19 09:00 11/12/18 13:14 Vancomycin HCl 750 mg/Sodium Chloride 275 ml @ 183.333 mls/hr Q12H IVPB 10/14/18 22:00 10/19/18 21:59 10/15/18 10:37 Allergies: Coded Allergies: No Known Allergies (Unverified , 10/01/18) Subjective Patient is very somnolent, less responsive, coughing. Objective Last Vital Signs Date Time Temp Pulse Resp B/P (MAP) Pulse Ox O2 Delivery O2 Flow Rate FiO2 10/15/18 14:00 86 10/15/18 12:00 97.9 17 134/87 (103) 92 10/15/18 09:00 Venturi Mask 10/14/18 22:13 2.0 28 Laboratory Tests Test 10/15/18 05:48 10/15/18 08:35 White Blood Count 7.4 K/UL (4.8-10.8) # Red Blood Count 6.47 M/UL (4.20-5.40) H Hemoglobin 16.7 G/DL (12.0-16.0) H Hematocrit 52.6 % (37.0-47.0) H Mean Corpuscular Volume 81 FL (80-99) Mean Corpuscular Hemoglobin 25.9 PG (27.0-31.0) L Mean Corpuscular Hemoglobin Concent 31.8 G/DL (32.0-36.0) L Red Cell Distribution Width 15.5 % (11.6-14.8) H Platelet Count 210 K/UL (150-450) Mean Platelet Volume 7.2 FL (6.5-10.1) Neutrophils (%) (Auto) % (45.0-75.0) Lymphocytes (%) (Auto) % (20.0-45.0) Monocytes (%) (Auto) % (1.0-10.0) Eosinophils (%) (Auto) % (0.0-3.0) Basophils (%) (Auto) % (0.0-2.0) Differential Total Cells Counted 100 Neutrophils % (Manual) 91 % (45-75) H Lymphocytes % (Manual) 4 % (20-45) L Monocytes % (Manual) 5 % (1-10) Eosinophils % (Manual) 0 % (0-3) Basophils % (Manual) 0 % (0-2) Band Neutrophils 0 % (0-8) Platelet Estimate Adequate Platelet Morphology Normal Anisocytosis 1+ Sodium Level 138 MMOL/L (136-145) Potassium Level 3.8 MMOL/L (3.5-5.1) Chloride Level 104 MMOL/L (98-107) Carbon Dioxide Level 22 MMOL/L (21-32) Anion Gap 12 mmol/L (5-15) Blood Urea Nitrogen 16 mg/dL (7-18) Creatinine 0.9 MG/DL (0.55-1.30) Estimat Glomerular Filtration Rate > 60 mL/min (>60) Glucose Level 112 MG/DL (74-106) H Calcium Level 8.6 MG/DL (8.5-10.1) Coccidioides Antibody (Comp Fix) Pending Microbiology Date/Time Source Procedure Growth Status 10/13/18 17:15 Blood Blood Culture - Preliminary NO GROWTH AFTER 24 HOURS Resulted 10/13/18 17:00 Blood Blood Culture - Preliminary NO GROWTH AFTER 24 HOURS Resulted Intake and Output 10/14/18 10/15/18 19:00 07:00 Intake Total 120 ml Balance 120 ml Intake Oral 120 ml # Voids 2 1 Objective General: No acute distress, less responsive somnolent on venti mask oxygen HEENT: NCAT, sclera anicteric, PERRL, EOMI. Neck: Supple, no significant jugular venous distention, Lungs: fair inspiratory effort, chest congestion, no wheezes. Heart: Regular rate and rhythm, normal S1/S2, no murmur Abdomen: soft, nontender, nondistended. Normoactive bowel sounds.. Extremities: No Cyanosis , clubbing or edema. Muscle atrophy bilateral lower extremity Neuro: A&O x 1 Able to move all extremities slowly, Assessment/Plan Assessment/Plan (1) Pneumonia (2) UTI (urinary tract infection) (3) Cachexia (4) HIV (human immunodeficiency virus infection) (5) Cocaine abuse Assessment/Plan Follow-up with the cultures and laboratory, Continue on broad-spectrum antibiotics with vancomycin and Zosyn, Follow-up with pulmonary/ID recommendation. Continue prednisone 40 mg daily. At this time CODE STATUS is full code. Derek Trammell MD Oct 15, 2018 17:12
--- NOTE | 2018-10-15 17:28 | Consultation ---
History of Present Illness General Date patient seen: Oct 15, 2018 Chief Complaint: Generalized Weakness Reason for Consultation: AMS Present Illness HPI Elida Taylor is a 48 year old woman with a past medical history of human immunodeficiency virus and hypertension with cocaine abuse. She presented to ED on 10/13/18 with approximately 3 days of extreme fatigue and generalized weakness. She was non focal with her weakness and grossly intact neurologically until today when she became more drowsy and less responsive. Allergies: Coded Allergies: No Known Allergies (Unverified , 10/01/18) Medication History Scheduled Ciprofloxacin (Cipro), 500 MG PO EVERY 12 HOURS Scheduled PRN Ibuprofen* (Motrin*), 600 MG ORAL Q8H PRN for For Pain Miscellaneous Medications Unable to Obtain Medications (Unable To Obtain Meds), (Reported) Patient History Limited by: medical condition Healthcare decision maker N Resuscitation status Full Code Advanced Directive on File Review of Systems All Other Systems: negative except mentioned in HPI ROS Narrative Unable to obtain due to patient's obtunded status Physical Exam General Appearance: no apparent distress, lethargic, thin, other - Pupils fixed and dilated 3+ Bilaterally. Lines, tubes and drains: peripheral HEENT: normocephalic, anicteric, mucous membranes moist, supple, no JVD Neck: normal alignment, normal inspection Extremities: other Neurologic: abnormal CN, motor weakness, unresponsiveness, Babinski present, other - Decorticate posturing with noxious stimuli in UEs bilaterally. Last 24 Hour Vital Signs Date Time Temp Pulse Resp B/P (MAP) Pulse Ox O2 Delivery O2 Flow Rate FiO2 10/15/18 14:00 86 10/15/18 12:00 97.9 89 17 134/87 (103) 92 10/15/18 09:00 Venturi Mask 10/15/18 08:00 80 10/15/18 08:00 97.7 74 21 122/81 (95) 96 10/15/18 04:00 88 10/15/18 04:00 97.3 88 18 147/99 (115) 97 10/15/18 00:00 115 10/15/18 00:00 96.8 115 16 138/104 (115) 94 10/14/18 22:13 95 Nasal Cannula 2.0 28 10/14/18 22:13 Nasal Cannula 2.0 28 10/14/18 21:00 Venturi Mask 14.0 10/14/18 20:00 97.2 111 18 132/98 (109) 93 10/14/18 20:00 111 Intake and Output 10/14/18 10/15/18 19:00 07:00 Intake Total 120 ml Balance 120 ml Intake Oral 120 ml # Voids 2 1 Laboratory Tests Test 10/15/18 05:48 10/15/18 08:35 White Blood Count 7.4 K/UL (4.8-10.8) # Red Blood Count 6.47 M/UL (4.20-5.40) H Hemoglobin 16.7 G/DL (12.0-16.0) H Hematocrit 52.6 % (37.0-47.0) H Mean Corpuscular Volume 81 FL (80-99) Mean Corpuscular Hemoglobin 25.9 PG (27.0-31.0) L Mean Corpuscular Hemoglobin Concent 31.8 G/DL (32.0-36.0) L Red Cell Distribution Width 15.5 % (11.6-14.8) H Platelet Count 210 K/UL (150-450) Mean Platelet Volume 7.2 FL (6.5-10.1) Neutrophils (%) (Auto) % (45.0-75.0) Lymphocytes (%) (Auto) % (20.0-45.0) Monocytes (%) (Auto) % (1.0-10.0) Eosinophils (%) (Auto) % (0.0-3.0) Basophils (%) (Auto) % (0.0-2.0) Differential Total Cells Counted 100 Neutrophils % (Manual) 91 % (45-75) H Lymphocytes % (Manual) 4 % (20-45) L Monocytes % (Manual) 5 % (1-10) Eosinophils % (Manual) 0 % (0-3) Basophils % (Manual) 0 % (0-2) Band Neutrophils 0 % (0-8) Platelet Estimate Adequate Platelet Morphology Normal Anisocytosis 1+ Sodium Level 138 MMOL/L (136-145) Potassium Level 3.8 MMOL/L (3.5-5.1) Chloride Level 104 MMOL/L (98-107) Carbon Dioxide Level 22 MMOL/L (21-32) Anion Gap 12 mmol/L (5-15) Blood Urea Nitrogen 16 mg/dL (7-18) Creatinine 0.9 MG/DL (0.55-1.30) Estimat Glomerular Filtration Rate > 60 mL/min (>60) Glucose Level 112 MG/DL (74-106) H Calcium Level 8.6 MG/DL (8.5-10.1) Coccidioides Antibody (Comp Fix) Pending Height (Feet): 5 Height (Inches): 3.00 Weight (Pounds): 100 Medications Current Medications Medications (Trade) Dose Ordered Sig/Diaz Route PRN Reason Start Time Stop Time Status Last Admin Dose Admin Acetaminophen (Tylenol) 650 mg Q4H PRN ORAL fever 10/13/18 14:26 11/12/18 14:25 Clonidine HCl (Catapres Tab) 0.1 mg Q6H PRN ORAL SBP > 160 mm Hg 10/13/18 14:26 11/12/18 14:25 Heparin Sodium (Porcine) (Heparin 5000 units/ml) 5,000 units EVERY 12 HOURS SUBQ 10/13/18 21:00 11/11/18 08:59 10/15/18 08:29 Iopamidol (Isovue-300 100ml) 100 ml NOW PRN INJ Radiology Procedure 10/13/18 18:00 10/15/18 17:48 Morphine Sulfate (Morphine Sulfate) 2 mg Q4H PRN IVP Moderate Pain (Pain Scale 4-6) 10/13/18 14:26 10/20/18 14:25 Ondansetron HCl (Zofran) 4 mg Q6H PRN IVP Nausea & Vomiting 10/13/18 15:45 11/10/18 21:44 Piperacillin Sod/ Tazobactam Sod 3.375 gm/Sodium Chloride 110 ml @ 220 mls/hr Q6HR IVPB 10/15/18 00:00 10/22/18 00:00 10/15/18 12:10 Polyethylene Glycol (Miralax) 17 gm DAILYPRN PRN ORAL Constipation 10/13/18 14:26 11/12/18 14:25 Prednisone (predniSONE) 20 mg DAILY ORAL 10/26/18 08:00 11/05/18 23:59 Prednisone (predniSONE) 40 mg BID ORAL 10/15/18 18:00 10/20/18 10:00 Prednisone (predniSONE) 40 mg DAILY ORAL 10/21/18 08:00 10/25/18 23:59 Trimethoprim/ Sulfamethoxazole 20 ml/Dextrose 570 ml @ 380 mls/hr Q8HR@0000,0800,1600 IV 10/14/18 16:00 10/21/18 15:59 10/15/18 08:28 Vancomycin HCl (Vanco rx to dose) 1 ea DAILY PRN MISC Per rx protocol 10/14/18 09:00 11/12/18 13:14 Vancomycin HCl 750 mg/Sodium Chloride 275 ml @ 183.333 mls/hr Q12H IVPB 10/14/18 22:00 10/19/18 21:59 10/15/18 10:37 Assessment/Plan Problem List: (1) Cocaine abuse ICD Codes: F14.10 - Cocaine abuse, uncomplicated SNOMED: 94353598 (2) AIDS ICD Codes: B20 - Human immunodeficiency virus [HIV] disease SNOMED: 06076301 (3) Acute respiratory failure ICD Codes: J96.00 - Acute respiratory failure, unspecified whether with hypoxia or hypercapnia SNOMED: 13445786 (4) Homelessness ICD Codes: Z59.0 - Homelessness SNOMED: 79768037 (5) Acute encephalopathy Assessment & Plan: EEG Recommended CT Brain Normal but exam is very poor Decorticate posturing is a poor prognostic factor. Consider MRI Brain. ICD Codes: G93.40 - Encephalopathy, unspecified SNOMED: 10016440, 001082101 Status: not improved Assessment/Plan: Q2 Neuro Obs EEG recommended Discuss utility of MRI given very poor exam with posturing Na 135-145 SBP 90-140 IVF Maintain normothermia This was a Critical Care visit lasting 45 minutes, including exam of patient, review of medical records and neurology recommendations. Glenna Berrios N.P. Oct 15, 2018 17:28
--- NOTE | 2018-10-15 17:40 | Diagnostic Imaging Report ---
EXAM: CT Head Without Intravenous Contrast CLINICAL HISTORY: ALOC TECHNIQUE: Axial computed tomography images of the head/brain without intravenous contrast. CTDI is 70.38 mGy and DLP is 1354 mGy-cm. One or more of the following dose reduction techniques were used: automated exposure control, adjustment of the mA and/or kV according to patient size, use of iterative reconstruction technique. COMPARISON: No relevant prior studies available. FINDINGS: Brain: No hemorrhage. No edema. Ventricles: No ventriculomegaly. Bones/joints: No acute fracture. Soft tissues: Unremarkable. Sinuses: No acute sinusitis. Mastoid air cells: No mastoid effusion. IMPRESSION: No acute intracranial process.
[2018-10-15] MEDS ORDERED: Morphine Sulfate 2mg/ml Inj(IV/IM USE ONLY) IVP PRN (18:23)
[2018-10-15] MEDS ORDERED: Trimethoprim/Sulfamethoxazole 20 ML in D5W 500ml 550 ML IV SCH (19:00)
--- NOTE | 2018-10-15 19:06 | Diagnostic Imaging Report ---
EXAM: XR Abdomen, 1 View CLINICAL HISTORY: NGT TECHNIQUE: Frontal supine view of the abdomen/pelvis. COMPARISON: No relevant prior studies available. FINDINGS: Lower thorax: Bilateral pulmonary opacities. Gastrointestinal tract: Unremarkable. Bones/joints: No acute fracture. Tubes, lines and devices: Enteric tube in the proximal stomach. IMPRESSION: Enteric tube in the proximal stomach.
[2018-10-15] MEDS ORDERED: Vancomycin 750 MG in NS 275 ML IVPB SCH (22:00)
--- NOTE | 2018-10-15 22:01 | Cardiology Report ---
APPROVED REPORT EKG Measurement Heart [id number] Sinus tachycardia Voltage for LVH Biatrial enlargement Nonspecific T wave abnormality Abnormal ECG
[2018-10-15] MEDS: Vancomycin 1.25gm Premix IVPB SCH (22:37)
[2018-10-16] VITALS (24 sets, daily range): BP systolic 37–189; BP diastolic 17–133
[2018-10-16] MEDS: Piperacillin/Tazobactam 3.375 GM in NS 110 ML IVPB SCH ×3 (00:52→12:48)
[2018-10-16 06:14] LABS: HEMATOCRIT 39.6 % (37.0-47.0); MEAN CORPUSCULAR VOLUME 80 FL (80-99); PLATELET COUNT 224 K/UL (150-450); RED BLOOD COUNT 4.93 M/UL (4.20-5.40); RED CELL DISTRIBUTION WIDTH 15.4 % (11.6-14.8); WHITE BLOOD COUNT 7.7 K/UL (4.8-10.8)
[2018-10-16 06:37] LABS: ALANINE AMINOTRANSFERASE 38 U/L (12-78); ALBUMIN 2.7 G/DL (3.4-5.0); ALBUMIN/GLOBULIN RATIO 0.6 (1.0-2.7); ALKALINE PHOSPHATASE 64 U/L (46-116); ANION GAP 11 mmol/L (5-15); ASPARTATE AMINO TRANSFERASE 21 U/L (15-37); BILIRUBIN,TOTAL 0.5 MG/DL (0.2-1.0); BLOOD UREA NITROGEN 12 mg/dL (7-18); CALCIUM 8.6 MG/DL (8.5-10.1); CARBON DIOXIDE 20 MMOL/L (21-32); CHLORIDE 103 MMOL/L (98-107); CREATININE 0.9 MG/DL (0.55-1.30); PHOSPHORUS 3.5 MG/DL (2.5-4.9); POTASSIUM 3.6 MMOL/L (3.5-5.1); SODIUM 134 MMOL/L (136-145)
[2018-10-16] MEDS ORDERED: Trimethoprim/Sulfamethoxazole 20 ML in D5W 500ml 550 ML IV SCH (08:00)
[2018-10-16 08:16] LABS: APPEARANCE,URINE CLEAR; BILIRUBIN, URINE NEGATIVE (NEGATIVE); GLUCOSE, URINE (UA) NEGATIVE (NEGATIVE); KETONES,URINE NEGATIVE (NEGATIVE); LEUKOCYTE ESTERASE ,URINE 1+ (NEGATIVE); NITRITE,URINE NEGATIVE (NEGATIVE); PH,URINE 6 (4.5-8.0); PROTEIN,URINE 1+ (NEGATIVE); UROBILINOGEN,URINE NORMAL MG/DL (0.0-1.0)
[2018-10-16 08:27] LABS: COLOR,URINE YELLOW
[2018-10-16] MEDS: Heparin 5000 units/ml inj SUBQ SCH (08:36)
--- NOTE | 2018-10-16 09:12 | Pulmonolgy Critical Care Note ---
Critical Care - Asmt/Plan Problems: (1) Acute encephalopathy (2) Acute respiratory failure (3) Multiple organ failure (4) End stage COPD (5) AIDS (6) Pneumonia (7) Cocaine abuse Respiratory: monitor respiratory rate, adjust FIO2, CXR Cardiac: continue to monitor HR/BP Renal: F/U I&O Infectious Disease: check cultures, continue antibiotics Gastrointestinal: hold feedings Endocrine: monitor blood sugar Hematologic: monitor H/H, transfuse if hgb<8.5 Neurologic: PRN Morphine Affect: PRN ativan Notes Reviewed: scrap wheeler, cardio, ID Discussed with: nurses, consultants, supportive employment case manager, other - bioethic for plan of care is called Critical Care - Objective Last 24 Hour Vital Signs Date Time Temp Pulse Resp B/P (MAP) Pulse Ox O2 Delivery O2 Flow Rate FiO2 10/16/18 07:32 85 Bi-pap 100 10/16/18 07:32 Bi-pap 100 10/16/18 07:30 135 20 87 Facial 100 10/16/18 07:09 131 19 189/127 (147) 83 10/16/18 06:12 209/140 10/16/18 06:00 91 18 149/124 (132) 94 10/16/18 05:00 91 18 133/104 (114) 95 10/16/18 04:00 98.4 95 17 133/98 (110) 95 10/16/18 04:00 Non-Rebreather 100.0 10/16/18 04:00 100 10/16/18 03:57 98.4 10/16/18 03:00 91 18 168/110 (129) 95 10/16/18 02:00 91 18 132/100 (111) 95 10/16/18 01:00 91 18 134/99 (111) 95 10/16/18 00:00 Venturi Mask 15.0 10/16/18 00:00 98.4 95 17 134/97 (109) 95 10/15/18 23:00 99 16 128/97 (107) 99 10/15/18 22:00 88 16 141/93 (109) 99 10/15/18 21:24 165/101 10/15/18 21:00 83 21 165/101 (122) 99 10/15/18 20:00 98.9 78 16 159/92 (114) 99 10/15/18 20:00 95 10/15/18 19:45 97 Venturi Mask 14.0 55 10/15/18 19:45 Venturi Mask 14.0 55 10/15/18 19:00 87 16 127/95 (106) 99 10/15/18 16:00 86 10/15/18 16:00 97.7 102 16 132/96 (108) 93 10/15/18 14:00 86 10/15/18 12:00 97.9 89 17 134/87 (103) 92 Status: obtunded Condition: critical HEENT: atraumatic Lungs: rales, rhonchi Heart: HR/BP unstable Abdomen: soft Extremities: no C/C/E Micro: Microbiology Date/Time Source Procedure Growth Status 10/13/18 17:15 Blood Blood Culture - Preliminary NO GROWTH AFTER 48 HOURS Resulted 10/13/18 17:00 Blood Blood Culture - Preliminary NO GROWTH AFTER 48 HOURS Resulted Critical Care - Subjective ICU Day: 2 Condition: critical EKG Rhythm: Sinus Rhythm FI02: 100 Sputum Amount: Moderate I&O: Intake and Output 10/15/18 10/16/18 19:00 07:00 Intake Total 385.000 ml Output Total 200 ml Balance 185.000 ml IV Total 385.000 ml Output Urine Total 200 ml Labs: Laboratory Tests Test 10/15/18 21:15 10/16/18 03:38 10/16/18 04:00 10/16/18 04:20 Vancomycin Level Trough 6.2 ug/mL (5.0-12.0) Cryptococcus Antigen Pending Arterial Blood pH 7.373 (7.350-7.450) Arterial Blood Partial Pressure CO2 27.4 mmHg (35.0-45.0) L Arterial Blood Partial Pressure O2 64.2 mmHg (75.0-100.0) L Arterial Blood HCO3 15.6 mmol/L (22.0-26.0) *L Arterial Blood Oxygen Saturation 90.0 % (95-100) L Arterial Blood Base Excess -8 (-2-2) L Eleazar Test Positive Urine Color Yellow Urine Appearance Clear Urine pH 6 (4.5-8.0) Urine Specific [place] 1.015 (1.005-1.035) Urine Protein 1+ (NEGATIVE) H Urine Glucose (UA) Negative (NEGATIVE) Urine Ketones Negative (NEGATIVE) Urine Blood Negative (NEGATIVE) Urine Nitrite Negative (NEGATIVE) Urine Bilirubin Negative (NEGATIVE) Urine Urobilinogen Normal MG/DL (0.0-1.0) Urine Leukocyte Esterase 1+ (NEGATIVE) H Urine RBC 0 /HPF (0 - 2) Urine WBC 0-2 /HPF (0 - 2) Urine Squamous Epithelial Cells Occasional /LPF Urine Bacteria None /HPF (NONE) White Blood Count 7.7 K/UL (4.8-10.8) Red Blood Count 4.93 M/UL (4.20-5.40) Hemoglobin 13.0 G/DL (12.0-16.0) Hematocrit 39.6 % (37.0-47.0) Mean Corpuscular Volume 80 FL (80-99) Mean Corpuscular Hemoglobin 26.3 PG (27.0-31.0) L Mean Corpuscular Hemoglobin Concent 32.7 G/DL (32.0-36.0) Red Cell Distribution Width 15.4 % (11.6-14.8) H Platelet Count 224 K/UL (150-450) Mean Platelet Volume 7.3 FL (6.5-10.1) Neutrophils (%) (Auto) % (45.0-75.0) Lymphocytes (%) (Auto) % (20.0-45.0) Monocytes (%) (Auto) % (1.0-10.0) Eosinophils (%) (Auto) % (0.0-3.0) Basophils (%) (Auto) % (0.0-2.0) Neutrophils % (Manual) Pending Lymphocytes % (Manual) Pending Platelet Estimate Pending Platelet Morphology Pending Prothrombin Time 10.7 SEC (9.30-11.50) Prothromb Time International Ratio 1.0 (0.9-1.1) Activated Partial Thromboplast Time 36 SEC (23-33) H Sodium Level 134 MMOL/L (136-145) L Potassium Level 3.6 MMOL/L (3.5-5.1) Chloride Level 103 MMOL/L (98-107) Carbon Dioxide Level 20 MMOL/L (21-32) L Anion Gap 11 mmol/L (5-15) Blood Urea Nitrogen 12 mg/dL (7-18) Creatinine 0.9 MG/DL (0.55-1.30) Estimat Glomerular Filtration Rate > 60 mL/min (>60) Glucose Level 129 MG/DL (74-106) H Calcium Level 8.6 MG/DL (8.5-10.1) Phosphorus Level 3.5 MG/DL (2.5-4.9) Magnesium Level 2.1 MG/DL (1.8-2.4) Total Bilirubin 0.5 MG/DL (0.2-1.0) Aspartate Amino Transf (AST/SGOT) 21 U/L (15-37) Alanine Aminotransferase (ALT/SGPT) 38 U/L (12-78) Alkaline Phosphatase 64 U/L (46-116) Total Protein 6.9 G/DL (6.4-8.2) Albumin 2.7 G/DL (3.4-5.0) L Globulin 4.2 g/dL Albumin/Globulin Ratio 0.6 (1.0-2.7) L HIV-1 RNA, Quantitative copies/mL Pending HIV Genotype Pending Get Terry MD Oct 16, 2018 09:12
[2018-10-16] MEDS ORDERED: Enalaprilat 2.5mg/2ml Inj IV PRN (09:15)
[2018-10-16] MEDS ORDERED: Labetalol 5mg/ml 20ml vial IV PRN (09:15)
[2018-10-16] MEDS ORDERED: Gadavist 7.5mMol/7.5ml vial IV PRN (09:30)
--- NOTE | 2018-10-16 09:38 | Infectious Diseases Prog Note ---
Assessment/Plan Assessment/Plan Abx: Ceftriaxone x1 10/11 Cefepime 10/12- IV Vancomycin 10/11- Assessment: Afebrile Mild leukopenia, SP PNA -high suspicion for PCP given Cd4 7, GGO on CT, hypoxia and elevated gradient -hypoxic w/ elevated A-a gradient at 70 -CTA chest: Negative for evidence of acute pulmonary embolus or other acute thoracic vascular pathology. Evidence of bullous COPD. Diffuse groundglass opacity involving the lung unaffected by the bullae. Most likely, this represents normal lung that is compressed by the space-occupying bullae. Differential considerations for diffuse groundglass opacity include pulmonary edema, hypersensitivity pneumonitis, organizing pneumonia, pulmonary fibrosis. Consolidation and atelectasis involving much of the right lower lobe, and patchy consolidation in the right middle lobe. Most likely on the basis of pneumonia. There may be a component of chronic fibrosis as well. Right hilar and subcarinal lymphadenopathy. This could be reactive or neoplastic. The possibility of occult underlying mass within the consolidated lung should be considered Central calcification within the subcarinal lymphadenopathy, suggestive of old granulomatous disease -CXR: Evidence of bullous COPD.Very questionable faint patchy infiltrate at the right lung base. No acute process otherwise Gram positive bacteremia- real vs contaminant -Bcx 2/ (from same set) S capitis, S Epi; repeat Bcx NTD UDS+ cocaine Homeless HIV/AIDS- Cd4 7 (1.1L)-unknown prior regimen and unknown where she follows for HIV- pt unable to provide hx) -RPR, hep panel neg -VL p HTN Plan: -Cont ZOsyn #4/7 FOR ESBL E.coli and pNA -REsume IV Vancomycin #6 for gram positive bacteremia pending ID and repeat Bcx and for PNA -Add empiric IV Bactrim #3 waiting CD4 and for empiric PCP coverage -Given hypoxia and elevated A-a will also add prednisone -40mg bid x 5 days then, -40mg qd x5 days then, -20mg qd for 11 days -monitor Cr, K -10/13 SP Cefepime #2 -f/u repeat Bcx x2 -f/u cx -Monitor CBC/CMP, temperatures -f/u HIV VL, GC/CL, Cocci ab, CrAg, PCP DFA, HIV genotype -MRI Brain w/wo if stable -Neuro eval -Pt critically ill, remains hypoxic despite Bipap at 100% Fio2. Patient with AIDS and now worsening encephalopathy. Multiple opportunistic infections are possible- most concerning is PCP PNA. Also can have BACK TENDER PULP DRIER lymphoma or Toxo given mental status changes. CT head non contrast was negative. She is also believed to have end-stage COPD given extensive bulla on CT chest. From ID standpoint, AIDS and OI are treatable but her baseline pulmonary status may be difficult to treat a severe pneumonia such as PCP. Patient is currently full code and attempts are made to find her family. Bioethics has also been contacted. Thank you for this consultation. Will continue to follow along with you. Discussed with RN, pulmonary team, micro lab staff and director social welfare Subjective Allergies: Coded Allergies: No Known Allergies (Unverified , 10/01/18) Subjective transferred to ICU yesterday as worsening mental status and hypoxia she is now on Bipap at 100% afebrile Objective Vital Signs Last 24 Hour Vital Signs Date Time Temp Pulse Resp B/P (MAP) Pulse Ox O2 Delivery O2 Flow Rate FiO2 10/16/18 07:32 85 Bi-pap 100 10/16/18 07:32 Bi-pap 100 10/16/18 07:30 135 20 87 Facial 100 10/16/18 07:09 131 19 189/127 (147) 83 10/16/18 06:12 209/140 10/16/18 06:00 91 18 149/124 (132) 94 10/16/18 05:00 91 18 133/104 (114) 95 10/16/18 04:00 98.4 95 17 133/98 (110) 95 10/16/18 04:00 Non-Rebreather 100.0 10/16/18 04:00 100 10/16/18 03:57 98.4 10/16/18 03:00 91 18 168/110 (129) 95 10/16/18 02:00 91 18 132/100 (111) 95 10/16/18 01:00 91 18 134/99 (111) 95 10/16/18 00:00 Venturi Mask 15.0 10/16/18 00:00 98.4 95 17 134/97 (109) 95 10/15/18 23:00 99 16 128/97 (107) 99 10/15/18 22:00 88 16 141/93 (109) 99 10/15/18 21:24 165/101 10/15/18 21:00 83 21 165/101 (122) 99 10/15/18 20:00 98.9 78 16 159/92 (114) 99 10/15/18 20:00 95 10/15/18 19:45 97 Venturi Mask 14.0 55 10/15/18 19:45 Venturi Mask 14.0 55 10/15/18 19:00 87 16 127/95 (106) 99 10/15/18 16:00 86 10/15/18 16:00 97.7 102 16 132/96 (108) 93 10/15/18 14:00 86 10/15/18 12:00 97.9 89 17 134/87 (103) 92 Height (Feet): 5 Height (Inches): 3.00 Weight (Pounds): 100 Objective General Appearance: no apparent distress, alert, non-toxic, cachetic Head: normocephalic, atraumatic Eyes: bilateral eye normal inspection, bilateral eye PERRL ENT: hearing grossly normal, normal pharynx, no angioedema, normal voice Neck: full range of motion, supple/symm/no masses Respiratory: chest non-tender, lungs clear, normal breath sounds, no respiratory distress, no retraction, no accessory muscle use, speaking full sentences Cardiovascular #1: regular rate, rhythm, no edema Gastrointestinal: normal bowel sounds, non tender, soft, non-distended, no guarding, no rebound Rectal: deferred Musculoskeletal: back normal, normal range of motion, non-tender Neurologic: alert, oriented x3, responsive, motor strength/tone normal, sensory intact, speech normal Skin: normal color, no rash, warm/dry, well hydrated Microbiology Date/Time Source Procedure Growth Status 10/13/18 17:15 Blood Blood Culture - Preliminary NO GROWTH AFTER 48 HOURS Resulted 10/13/18 17:00 Blood Blood Culture - Preliminary NO GROWTH AFTER 48 HOURS Resulted Laboratory Tests Test 10/15/18 21:15 10/16/18 03:38 10/16/18 04:00 10/16/18 04:20 Vancomycin Level Trough 6.2 ug/mL (5.0-12.0) Cryptococcus Antigen Pending Arterial Blood pH 7.373 (7.350-7.450) Arterial Blood Partial Pressure CO2 27.4 mmHg (35.0-45.0) L Arterial Blood Partial Pressure O2 64.2 mmHg (75.0-100.0) L Arterial Blood HCO3 15.6 mmol/L (22.0-26.0) *L Arterial Blood Oxygen Saturation 90.0 % (95-100) L Arterial Blood Base Excess -8 (-2-2) L Eleazar Test Positive Urine Color Yellow Urine Appearance Clear Urine pH 6 (4.5-8.0) Urine Specific [place] 1.015 (1.005-1.035) Urine Protein 1+ (NEGATIVE) H Urine Glucose (UA) Negative (NEGATIVE) Urine Ketones Negative (NEGATIVE) Urine Blood Negative (NEGATIVE) Urine Nitrite Negative (NEGATIVE) Urine Bilirubin Negative (NEGATIVE) Urine Urobilinogen Normal MG/DL (0.0-1.0) Urine Leukocyte Esterase 1+ (NEGATIVE) H Urine RBC 0 /HPF (0 - 2) Urine WBC 0-2 /HPF (0 - 2) Urine Squamous Epithelial Cells Occasional /LPF Urine Bacteria None /HPF (NONE) White Blood Count 7.7 K/UL (4.8-10.8) Red Blood Count 4.93 M/UL (4.20-5.40) Hemoglobin 13.0 G/DL (12.0-16.0) Hematocrit 39.6 % (37.0-47.0) Mean Corpuscular Volume 80 FL (80-99) Mean Corpuscular Hemoglobin 26.3 PG (27.0-31.0) L Mean Corpuscular Hemoglobin Concent 32.7 G/DL (32.0-36.0) Red Cell Distribution Width 15.4 % (11.6-14.8) H Platelet Count 224 K/UL (150-450) Mean Platelet Volume 7.3 FL (6.5-10.1) Neutrophils (%) (Auto) % (45.0-75.0) Lymphocytes (%) (Auto) % (20.0-45.0) Monocytes (%) (Auto) % (1.0-10.0) Eosinophils (%) (Auto) % (0.0-3.0) Basophils (%) (Auto) % (0.0-2.0) Differential Total Cells Counted 100 Neutrophils % (Manual) 92 % (45-75) H Lymphocytes % (Manual) 5 % (20-45) L Monocytes % (Manual) 2 % (1-10) Eosinophils % (Manual) 0 % (0-3) Basophils % (Manual) 1 % (0-2) Band Neutrophils 0 % (0-8) Platelet Estimate Adequate Platelet Morphology Normal Anisocytosis 1+ Microcytosis 1+ Prothrombin Time 10.7 SEC (9.30-11.50) Prothromb Time International Ratio 1.0 (0.9-1.1) Activated Partial Thromboplast Time 36 SEC (23-33) H Sodium Level 134 MMOL/L (136-145) L Potassium Level 3.6 MMOL/L (3.5-5.1) Chloride Level 103 MMOL/L (98-107) Carbon Dioxide Level 20 MMOL/L (21-32) L Anion Gap 11 mmol/L (5-15) Blood Urea Nitrogen 12 mg/dL (7-18) Creatinine 0.9 MG/DL (0.55-1.30) Estimat Glomerular Filtration Rate > 60 mL/min (>60) Glucose Level 129 MG/DL (74-106) H Calcium Level 8.6 MG/DL (8.5-10.1) Phosphorus Level 3.5 MG/DL (2.5-4.9) Magnesium Level 2.1 MG/DL (1.8-2.4) Total Bilirubin 0.5 MG/DL (0.2-1.0) Aspartate Amino Transf (AST/SGOT) 21 U/L (15-37) Alanine Aminotransferase (ALT/SGPT) 38 U/L (12-78) Alkaline Phosphatase 64 U/L (46-116) Total Protein 6.9 G/DL (6.4-8.2) Albumin 2.7 G/DL (3.4-5.0) L Globulin 4.2 g/dL Albumin/Globulin Ratio 0.6 (1.0-2.7) L HIV-1 RNA, Quantitative copies/mL Pending HIV Genotype Pending Current Medications Medications (Trade) Dose Ordered Sig/Diaz Route PRN Reason Start Time Stop Time Status Last Admin Dose Admin Acetaminophen (Tylenol) 650 mg Q4H PRN ORAL fever 10/15/18 18:30 11/12/18 14:25 Clonidine HCl (Catapres Tab) 0.1 mg Q6H PRN ORAL SBP > 160 mm Hg 10/15/18 18:23 11/12/18 18:22 10/16/18 06:12 Enalaprilat (Vasotec) 2.5 mg EVERY 4 HOURS PRN IV sbp more than 200 10/16/18 09:15 11/15/18 09:14 Heparin Sodium (Porcine) (Heparin 5000 units/ml) 5,000 units EVERY 12 HOURS SUBQ 10/15/18 21:00 11/11/18 08:59 10/15/18 21:20 Hydralazine HCl (Apresoline) 20 mg Q4H PRN IV sbp more than 160 10/16/18 09:15 11/15/18 09:14 Labetalol HCl (Normodyne) 20 mg EVERY HOUR PRN IV sbo more than 180 10/16/18 09:15 11/15/18 09:14 Metoprolol Tartrate 10 mg/ Dextrose 65 ml @ 130 mls/hr ONCE IVPB 10/16/18 10:15 10/16/18 11:30 Morphine Sulfate (Morphine Sulfate) 2 mg Q4H PRN IVP Moderate Pain (Pain Scale 4-6) 10/15/18 18:23 10/20/18 18:22 10/16/18 03:27 Ondansetron HCl (Zofran) 4 mg Q6H PRN IVP Nausea & Vomiting 10/15/18 18:23 11/10/18 18:22 Piperacillin Sod/ Tazobactam Sod 3.375 gm/Sodium Chloride 110 ml @ 220 mls/hr Q6HR IVPB 10/15/18 18:00 10/22/18 17:59 10/16/18 05:58 Polyethylene Glycol (Miralax) 17 gm DAILYPRN PRN ORAL Constipation 10/16/18 18:23 11/12/18 18:22 Prednisone (predniSONE) 20 mg DAILY ORAL 10/26/18 08:00 11/05/18 23:59 Prednisone (predniSONE) 40 mg BID ORAL 10/16/18 09:00 10/20/18 10:00 10/16/18 08:36 Prednisone (predniSONE) 40 mg DAILY ORAL 10/21/18 08:00 10/25/18 23:59 Trimethoprim/ Sulfamethoxazole 20 ml/Dextrose 570 ml @ 380 mls/hr Q8H IV 10/16/18 08:00 10/23/18 07:59 10/16/18 07:52 Vancomycin HCl (Vanco rx to dose) 1 ea DAILY PRN MISC Per rx protocol 10/15/18 18:23 11/14/18 18:22 Vancomycin HCl/ Dextrose 275 ml @ 183.333 mls/hr Q12H IVPB 10/15/18 22:30 10/20/18 22:29 10/15/18 22:37 Marah Vo M.D. Oct 16, 2018 09:38
--- NOTE | 2018-10-16 09:55 | Diagnostic Imaging Report ---
EXAM: XR Chest, 1 View CLINICAL HISTORY: DYSPNEA TECHNIQUE: Frontal view of the chest. COMPARISON: Chest x-ray dated 10/13/18 FINDINGS: Lungs: Worsening bibasilar opacities, which may represents an atelectasis versus pneumonia. Emphysematous versus bullous changes in the right upper lung, unchanged. Pleural space: Interval development of a small layering left pleural effusion. Heart: Unremarkable. No cardiomegaly. Mediastinum: Unremarkable. Bones/joints: Unremarkable. Tubes, lines and devices: NG tube extends below the diaphragm and its tip is not visualized. Telemetry leads overlie the thorax. IMPRESSION: 1. Interval development of a small layering left pleural effusion. 2. Worsening bibasilar opacities, which may represents an atelectasis versus pneumonia.
[2018-10-16] MEDS ORDERED: Metoprolol Tartrate 10 MG in D5W 55 ML IVPB SCH (10:15)
[2018-10-16] MEDS: Vancomycin 1.25gm Premix IVPB SCH (10:37)
--- NOTE | 2018-10-16 11:00 | Cardiology Progress Note ---
Assessment/Plan Assessment/Plan 1. Tachycardia, sinus in origin. 2. Cocaine abuse. 3. Cachexia. 4. HIV. 5. Urinary tract infection. 6. Malnutrition. 7. Pulmonary hypertension. 8. Pneumonia 9. 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 no pe has infiltrate id noted empiric abx duplex neg echo showed normal lv function , phtn no rv enlargement noted on the report mentally worse agre with neuro eval decision regarding conversion of code status to dnr would depend on the pts overall prognosis with respect to ID and pulm issues ,bioethic input beign sought, attmept are beign made to contact next of kin will rebolus of ns 500 cc aas bp is quie low Subjective ROS Limited/Unobtainable: Yes Subjective not communicative Objective Last 24 Hour Vital Signs Date Time Temp Pulse Resp B/P (MAP) Pulse Ox O2 Delivery O2 Flow Rate FiO2 10/16/18 09:56 138 118/75 10/16/18 09:27 140 20 90 Facial 100 10/16/18 09:00 140 20 157/121 (133) 89 10/16/18 08:00 Bi-pap 10/16/18 08:00 98.3 137 24 185/133 (150) 96 10/16/18 07:32 85 Bi-pap 100 10/16/18 07:32 Bi-pap 100 10/16/18 07:30 135 20 87 Facial 100 10/16/18 07:09 131 19 189/127 (147) 83 10/16/18 06:12 209/140 10/16/18 06:00 91 18 149/124 (132) 94 10/16/18 05:00 91 18 133/104 (114) 95 10/16/18 04:00 98.4 95 17 133/98 (110) 95 10/16/18 04:00 Non-Rebreather 100.0 10/16/18 04:00 100 10/16/18 03:57 98.4 10/16/18 03:00 91 18 168/110 (129) 95 10/16/18 02:00 91 18 132/100 (111) 95 10/16/18 01:00 91 18 134/99 (111) 95 10/16/18 00:00 Venturi Mask 15.0 10/16/18 00:00 98.4 95 17 134/97 (109) 95 10/15/18 23:00 99 16 128/97 (107) 99 10/15/18 22:00 88 16 141/93 (109) 99 10/15/18 21:24 165/101 10/15/18 21:00 83 21 165/101 (122) 99 10/15/18 20:00 98.9 78 16 159/92 (114) 99 10/15/18 20:00 95 10/15/18 19:45 97 Venturi Mask 14.0 55 10/15/18 19:45 Venturi Mask 14.0 55 10/15/18 19:00 87 16 127/95 (106) 99 10/15/18 16:00 86 10/15/18 16:00 97.7 102 16 132/96 (108) 93 10/15/18 14:00 86 10/15/18 12:00 97.9 89 17 134/87 (103) 92 General Appearance: other - bipapa Neck: supple Cardiovascular: irregularly irregular Respiratory/Chest: rhonchi - bilaterally Abdomen: normal bowel sounds, non tender, soft Extremities: no swelling Intake and Output 10/15/18 10/16/18 19:00 07:00 Intake Total 385.000 ml Output Total 200 ml Balance 185.000 ml IV Total 385.000 ml Output Urine Total 200 ml Laboratory Tests Test 10/15/18 21:15 10/16/18 03:38 10/16/18 04:00 10/16/18 04:20 Vancomycin Level Trough 6.2 ug/mL (5.0-12.0) Cryptococcus Antigen Pending Arterial Blood pH 7.373 (7.350-7.450) Arterial Blood Partial Pressure CO2 27.4 mmHg (35.0-45.0) L Arterial Blood Partial Pressure O2 64.2 mmHg (75.0-100.0) L Arterial Blood HCO3 15.6 mmol/L (22.0-26.0) *L Arterial Blood Oxygen Saturation 90.0 % (95-100) L Arterial Blood Base Excess -8 (-2-2) L Eleazar Test Positive Urine Color Yellow Urine Appearance Clear Urine pH 6 (4.5-8.0) Urine Specific [place] 1.015 (1.005-1.035) Urine Protein 1+ (NEGATIVE) H Urine Glucose (UA) Negative (NEGATIVE) Urine Ketones Negative (NEGATIVE) Urine Blood Negative (NEGATIVE) Urine Nitrite Negative (NEGATIVE) Urine Bilirubin Negative (NEGATIVE) Urine Urobilinogen Normal MG/DL (0.0-1.0) Urine Leukocyte Esterase 1+ (NEGATIVE) H Urine RBC 0 /HPF (0 - 2) Urine WBC 0-2 /HPF (0 - 2) Urine Squamous Epithelial Cells Occasional /LPF Urine Bacteria None /HPF (NONE) White Blood Count 7.7 K/UL (4.8-10.8) Red Blood Count 4.93 M/UL (4.20-5.40) Hemoglobin 13.0 G/DL (12.0-16.0) Hematocrit 39.6 % (37.0-47.0) Mean Corpuscular Volume 80 FL (80-99) Mean Corpuscular Hemoglobin 26.3 PG (27.0-31.0) L Mean Corpuscular Hemoglobin Concent 32.7 G/DL (32.0-36.0) Red Cell Distribution Width 15.4 % (11.6-14.8) H Platelet Count 224 K/UL (150-450) Mean Platelet Volume 7.3 FL (6.5-10.1) Neutrophils (%) (Auto) % (45.0-75.0) Lymphocytes (%) (Auto) % (20.0-45.0) Monocytes (%) (Auto) % (1.0-10.0) Eosinophils (%) (Auto) % (0.0-3.0) Basophils (%) (Auto) % (0.0-2.0) Differential Total Cells Counted 100 Neutrophils % (Manual) 92 % (45-75) H Lymphocytes % (Manual) 5 % (20-45) L Monocytes % (Manual) 2 % (1-10) Eosinophils % (Manual) 0 % (0-3) Basophils % (Manual) 1 % (0-2) Band Neutrophils 0 % (0-8) Platelet Estimate Adequate Platelet Morphology Normal Anisocytosis 1+ Microcytosis 1+ Prothrombin Time 10.7 SEC (9.30-11.50) Prothromb Time International Ratio 1.0 (0.9-1.1) Activated Partial Thromboplast Time 36 SEC (23-33) H Sodium Level 134 MMOL/L (136-145) L Potassium Level 3.6 MMOL/L (3.5-5.1) Chloride Level 103 MMOL/L (98-107) Carbon Dioxide Level 20 MMOL/L (21-32) L Anion Gap 11 mmol/L (5-15) Blood Urea Nitrogen 12 mg/dL (7-18) Creatinine 0.9 MG/DL (0.55-1.30) Estimat Glomerular Filtration Rate > 60 mL/min (>60) Glucose Level 129 MG/DL (74-106) H Calcium Level 8.6 MG/DL (8.5-10.1) Phosphorus Level 3.5 MG/DL (2.5-4.9) Magnesium Level 2.1 MG/DL (1.8-2.4) Total Bilirubin 0.5 MG/DL (0.2-1.0) Aspartate Amino Transf (AST/SGOT) 21 U/L (15-37) Alanine Aminotransferase (ALT/SGPT) 38 U/L (12-78) Alkaline Phosphatase 64 U/L (46-116) Total Protein 6.9 G/DL (6.4-8.2) Albumin 2.7 G/DL (3.4-5.0) L Globulin 4.2 g/dL Albumin/Globulin Ratio 0.6 (1.0-2.7) L HIV-1 RNA, Quantitative copies/mL Pending HIV Genotype Pending Microbiology Date/Time Source Procedure Growth Status 10/13/18 17:15 Blood Blood Culture - Preliminary NO GROWTH AFTER 48 HOURS Resulted 10/13/18 17:00 Blood Blood Culture - Preliminary NO GROWTH AFTER 48 HOURS Resulted Juan Sawyer MD Oct 16, 2018 11:00
--- NOTE | 2018-10-16 12:47 | Coder Physician Query ---
Please provide an appropriate diagnosis clarifying the Etiology and Acuity of this clinical scenario: Metabolic Encephalopathy Toxic Encephalopathy Toxic - Metabolic Encephalopathy Septic Encephalopathy with Sepsis Acute Hepatic Encephalopathy Subacute Hepatic Encephalopathy Encephalopathy due to drugs Encephalopathy Other: Unable To Determine Present on Admission: Yes (Y) Clinically Undeterminable (W) No (N) PHYSICIAN QUERY FORM ALTERED LEVEL OF CONSCIOUSNESS MTDD
--- NOTE | 2018-10-16 12:55 | Coder Physician Query ---
--------- THIS DOCUMENT IS A PERMANENT PART OF THE MEDICAL RECORD --------- PLEASE COMPLETE DOCUMENT BEFORE SIGNING Dear Clark Sanchez Date: 10/16/2018 Readers' Advisory Service Librarian/CDS Name: Morro Carrasco Readers' Advisory Service Librarian/CDS Phone No.: [phone] Exercise your independent professional judgment when responding to the query. Questions asked do not imply a particular answer is desired or expected. We greatly appreciate your clarification on this issue. CLINICAL DOCUMENTATION STATES: CLINICAL FINDINGS SHOW: Please select the most appropriate option: [] Mild [] Moderate [] Protein/Calorie Malnutrition [] Protein Malnutrition >Serum albumin 2.8 to 3.4 g/dL or Pre-albumin 5 to 7 mg/dl (3) >Inadequate nutritional intake (1, 2, 3, 4) >NPO > 5 days >Weight loss: 5% in 1 month or 7.5% in 3 months or 10% in 6 months (1,3,4) >BMI 16 to 18.4 or Weight <90 of ideal body weight (1,2,3,4) [] Serum Malnutrition (Protein/Calorie) [] Severe Protein Malnutrition >Serum Albumin < 2.8 g/dL (1,2) >Lymphocytes < 1500/uL (2) >Inadequate nutritional intake3 , high stress e.g. major trauma, sepsis, pancreatitis, gibbs etc. >Decubitus ulcers (1,2) , skin breakdown(2), easy hair pluckability >Weight <80% standard for height (2) >Triceps skin fold <3 mm2 >Mid-arm muscle circumference <25 cm2 >Creatinine-height index <60% standard (2) _ [] Hypoalbuminemia [] Emancipated w/ Malnutrition [] Kwashiorkor (rare in [place]) [] Marasmus [] Other [] Unable to determine [] Not Applicable Condition Present on Admission: [] Yes [] No [ ] Unable to determine Please also document in your Progress Notes and/or Discharge Summary and indicate if the condition was present on admission. M.D. References: 1 [facility] Board. (2007). Nutritional support strategy for protein -energy malnutrition in the elderly. Clinical Practice Guidelines. 2 Marisol Rojo (2011). Malnutrition and nutritional assessment. In Darvin Basurto (18th Ed.) James's Principle of Internal Medicine ([id number]) [place], [place]: [facility] 3 Zoila Patino (2001). Clinical Nutrition: Protein-energy malnutrition in the inpatient. [place] [employer] Journal, vol. 165 no. 10 (pp. 8569- 1343 ). 4 Sanket Wylie (2012). Geriactric Nutrition: Nutritional Issues in Older Adults. [email or web address]
[2018-10-16] MEDS ORDERED: D5NS 1,000 ML IV SCH (13:15)
[2018-10-16] MEDS ORDERED: DOPamine 400mg/250ml 250 ML IV SCH (13:45)
[2018-10-16] MEDS ORDERED: DOPamine 400mg/250ml BTL IV ONE ×2 (14:07)
[2018-10-16] MEDS ORDERED: NS 500ML ONE (14:07)
[2018-10-16] MEDS ORDERED: Magnesium Sulfate 2ml Inj ONE (14:07)
[2018-10-16] MEDS ORDERED: NS 275ml ONE ×2 (14:07)
[2018-10-16] MEDS ORDERED: Atropine Inj 1mg/10ml Syr ONE ×2 (14:07)
[2018-10-16] MEDS ORDERED: Tubing IV Secondary IV ONE ×2 (14:07)
[2018-10-16] MEDS ORDERED: D5NS 1000ml IV ONE (14:07)
--- NOTE | 2018-10-16 14:51 | Emergency Room Report ---
History of Present Illness General Chief Complaint: Generalized Weakness Source: Patient, EMS Present Illness Allergies: Coded Allergies: No Known Allergies (Unverified , 10/01/18) Nursing Documentation-[facility] Past Medical History: No History, Except For Hx Hypertension: Yes Physical Exam Vital Signs Date Time Temp Pulse Resp B/P (MAP) Pulse Ox O2 Delivery O2 Flow Rate FiO2 10/12/18 08:00 98.6 104 19 154/117 (129) 99 10/12/18 09:00 Room Air 10/13/18 19:31 2.0 28 Procedures Central Line Central Line : Consent: Emergent Central Line Lumen: triple Maximal Sterile Barrier Tech: yes cap, yes mask, yes sterile gown, yes sterile gloves, yes large sterile sheet, yes hand hygiene, yes chlorhexidine prep Central Line Postion: femoral (R) Complications: none Central Line Post Position: sutured Attempts: One Patient Tolerated: Well Complications: None CPR/Code Blue CPR/Code Blue Narrative I was called upstairs to a CODE BLUE Upon arrival the patient was undergoing CPR Eval in the rhythm patient appears to be in V. fib/V. tach After initial cardioversion patient had a palpable pulse At that point required airway intubation and central line placement please refer to the specifics for those patient's blood pressure was at 97 systolic further IV fluids were initiated And initially the patient's care handed back to the president [place] A second CODE BLUE was called fairly rapidly after this Upon arrival the patient had received epinephrine and I did order magnesium And patient was found to be in sinus rhythm again A third CODE BLUE was called quickly after this Upon arrival the patient is in asystole there are no palpable pulses CPR and ACLS continued Patient's Accu-Chek was appropriate at this time it appears that all attempts have been futile and patient was pronounced at 1408 Intubation Intubation : Consent: Emergent Intubation Method: orotracheal Tube Size (cm): 8.0 Breath Sounds after Intubation: equal Intubation Complications: no complications Post Intubation Xray: No Attempts: One Patient Tolerated: Well Complications: None Medical Decision Making Diagnostic Impression: Primary Impression: UTI (urinary tract infection) Additional Impressions: HIV (human immunodeficiency virus infection) Cachexia Last Vital Signs Date Time Temp Pulse Resp B/P (MAP) Pulse Ox O2 Delivery O2 Flow Rate FiO2 10/16/18 13:31 100 10/16/18 13:08 102 19 100 Facial 10/16/18 09:56 118/75 10/16/18 08:00 98.3 10/16/18 04:00 100.0 Disposition: ADMITTED INPATIENT Condition: Serious Scripts Ciprofloxacin (CIPRO) 500 Mg/5 Ml Enma.mc.rec 500 MG PO EVERY 12 HOURS for 4 Days, CAP Prov: Get Terry MD 10/12/18 Referrals: NOT CHOSEN IPA/MD,REFERRING (PCP) Catrachita Yoder DO Oct 16, 2018 14:51
[2018-10-16] MEDS ORDERED: Miralax 17gm pkt ORAL PRN (18:23)
--- NOTE | 2018-10-16 22:42 | Neurology Progress Note ---
Interim History Interim History ROS Limited/Unobtainable: Yes Complaints: AMS Interim History No new studies performed this morning. Patient's exam continues to be very poor with only decorticate posturing at this time. Pupils are dilated and fixed bilaterally. Objective Physical Exam Last Vital Signs Date Time Temp Pulse Resp B/P (MAP) Pulse Ox O2 Delivery O2 Flow Rate FiO2 10/16/18 13:31 100 10/16/18 13:08 102 19 100 Facial 10/16/18 13:00 37/17 (24) 10/16/18 12:00 97.7 10/16/18 04:00 100.0 Laboratory Tests Test 10/16/18 03:38 10/16/18 04:00 10/16/18 04:20 Arterial Blood pH 7.373 (7.350-7.450) Arterial Blood Partial Pressure CO2 27.4 mmHg (35.0-45.0) L Arterial Blood Partial Pressure O2 64.2 mmHg (75.0-100.0) L Arterial Blood HCO3 15.6 mmol/L (22.0-26.0) *L Arterial Blood Oxygen Saturation 90.0 % (95-100) L Arterial Blood Base Excess -8 (-2-2) L Eleazar Test Positive Urine Color Yellow Urine Appearance Clear Urine pH 6 (4.5-8.0) Urine Specific [place] 1.015 (1.005-1.035) Urine Protein 1+ (NEGATIVE) H Urine Glucose (UA) Negative (NEGATIVE) Urine Ketones Negative (NEGATIVE) Urine Blood Negative (NEGATIVE) Urine Nitrite Negative (NEGATIVE) Urine Bilirubin Negative (NEGATIVE) Urine Urobilinogen Normal MG/DL (0.0-1.0) Urine Leukocyte Esterase 1+ (NEGATIVE) H Urine RBC 0 /HPF (0 - 2) Urine WBC 0-2 /HPF (0 - 2) Urine Squamous Epithelial Cells Occasional /LPF Urine Bacteria None /HPF (NONE) White Blood Count 7.7 K/UL (4.8-10.8) Red Blood Count 4.93 M/UL (4.20-5.40) Hemoglobin 13.0 G/DL (12.0-16.0) Hematocrit 39.6 % (37.0-47.0) Mean Corpuscular Volume 80 FL (80-99) Mean Corpuscular Hemoglobin 26.3 PG (27.0-31.0) L Mean Corpuscular Hemoglobin Concent 32.7 G/DL (32.0-36.0) Red Cell Distribution Width 15.4 % (11.6-14.8) H Platelet Count 224 K/UL (150-450) Mean Platelet Volume 7.3 FL (6.5-10.1) Neutrophils (%) (Auto) % (45.0-75.0) Lymphocytes (%) (Auto) % (20.0-45.0) Monocytes (%) (Auto) % (1.0-10.0) Eosinophils (%) (Auto) % (0.0-3.0) Basophils (%) (Auto) % (0.0-2.0) Differential Total Cells Counted 100 Neutrophils % (Manual) 92 % (45-75) H Lymphocytes % (Manual) 5 % (20-45) L Monocytes % (Manual) 2 % (1-10) Eosinophils % (Manual) 0 % (0-3) Basophils % (Manual) 1 % (0-2) Band Neutrophils 0 % (0-8) Platelet Estimate Adequate Platelet Morphology Normal Anisocytosis 1+ Microcytosis 1+ Prothrombin Time 10.7 SEC (9.30-11.50) Prothromb Time International Ratio 1.0 (0.9-1.1) Activated Partial Thromboplast Time 36 SEC (23-33) H Sodium Level 134 MMOL/L (136-145) L Potassium Level 3.6 MMOL/L (3.5-5.1) Chloride Level 103 MMOL/L (98-107) Carbon Dioxide Level 20 MMOL/L (21-32) L Anion Gap 11 mmol/L (5-15) Blood Urea Nitrogen 12 mg/dL (7-18) Creatinine 0.9 MG/DL (0.55-1.30) Estimat Glomerular Filtration Rate > 60 mL/min (>60) Glucose Level 129 MG/DL (74-106) H Calcium Level 8.6 MG/DL (8.5-10.1) Phosphorus Level 3.5 MG/DL (2.5-4.9) Magnesium Level 2.1 MG/DL (1.8-2.4) Total Bilirubin 0.5 MG/DL (0.2-1.0) Aspartate Amino Transf (AST/SGOT) 21 U/L (15-37) Alanine Aminotransferase (ALT/SGPT) 38 U/L (12-78) Alkaline Phosphatase 64 U/L (46-116) Total Protein 6.9 G/DL (6.4-8.2) Albumin 2.7 G/DL (3.4-5.0) L Globulin 4.2 g/dL Albumin/Globulin Ratio 0.6 (1.0-2.7) L HIV-1 RNA, Quantitative copies/mL Pending HIV Genotype Pending Neurologic Exam Mental Status: other - Comatose with only decorticate posturing at this time. Pupils 4+ bilaterally fixed. Impression/Recommendations Problems: (1) Cocaine abuse (2) AIDS (3) Acute respiratory failure (4) Homelessness (5) Acute encephalopathy Assessment & Plan: EEG Recommended CT Brain Normal but exam is very poor Decorticate posturing is a poor prognostic factor. Consider MRI Brain. Status: not improved Diagnostic Impression EEG MRI Brain Q2 hour neuro obs Na 135-145 Abx as per ID Maintain normothermia Maintain normoglycemia with ISS Glenna Berrios N.P. Oct 16, 2018 22:42
--- NOTE | 2018-10-18 13:40 | Discharge Summary ---
Discharge Summary Discharge Summary _ SUMMARY DATE OF ADMISSION: 10/11/2018 DATE OF EXPIRATION: 10/16/2018 REASON FOR ADMISSION: 48 years old female with past medical history of HIV, homeless, presented to emergency department with chief complaints of generalized weakness. Patient was extremely cachectic and lookedchronically ill. She denied chest pain or shortness of breath . She denied recent illness . She denied nausea or vomiting. She denied fever and chills . She denied dysuria and hematuria. Upon evaluation patient was tachycardic with heart rate of 133. Pulse oximetry was stable on room air. Laboratory work-up revealed no leukocytosis, stable hemoglobin and hematocrit. EKG revealed sinus tachycardia. Chest x-ray demonstrated evidence of bullous COPD with hyperinflated d lungs and large bulla in the right upper lobe. Questionable focal hazy opacity in the right lung base. Urine toxicology screen was positive for cocaine. Serum alcohol level was negative. Lactic acid 2.3. Stable electrolytes 9. BUN 21, creatinine 0.8. Glucose 127. Troponin - 0.014. EKG revealed sinus tachycardia with T wave abnormality . Urinalysis was positive for UTI. Patient subsequently was admitted for further management. CONSULTANTS: service technician copier Dr. Sawyer neurologist Dr. Su pulmonary Dr. Terry ID specialist Dr. Richardson [facility]SE: Patient admitted started on broad-spectrum antibiotics. ID specialist followed. Blood culture revealed Staph capitis and Staph epidermidis, 2 out of 4. Urine culture revealed E. coli ESBL. Repeated blood culture on were negative. Antibiotic regimen optimized as per infectious disease recommendation . Echocardiogram revealed no evidence of vegetation. Left ventricular ejection fraction estimated to be 70 to 80%. Abnormal motion of the anteroseptal wall most likely due to increased right- sided pressure. Right ventricular systolic pressure of 72 consistent with a severe pulmonary hypertension. Venous duplex of bilateral lower extremity revealed no evidence of acute DVT. Follow-up chest x-ray revealed increased right mid and lower lung infiltrate , likely pneumonia . CTA of the chest and thorax demonstrated no evidence of acute pulmonary emboli or other acute thoracic vascular pathology. Evidence of bullous COPD . Diffuse ground -glass opacities, involving the lung , unaffected by the bulla , most likely representing normal lung compressed by the space-occupying bullae. Consolidation and atelectasis involving much of the mass much of the right lower lobe and patchy consolidation in the right middle lobe. Most likely on the basis of pneumonia. There may be also a component of chronic fibrosis. Right hilar and subcarinal lymphadenopathy noted. T-cell subset revealed CD4 count of 7 . Per infectious disease specialist , patient had high suspicion for PCP , given CD4 of 7 , ground- glass opacity on the CT scan, hypoxia and elevated gradient of 70. Patient was unable to provide history where she gets her HIV treatment. Patient was continued on Zosyn for ESBL E. coli and pneumonia, Vancomycin for gram-positive bacteremia., and Bactrim was added for empiric coverage for PCP. Prednisone was added , given hypoxia and elevated AA gradient in stepdown pattern. Hepatitis panel was negative. RPR was nonreactive. HIV viral load still pending at the time of this dictation . Cocci and cryptococci serology pending. Supplemental oxygen provided as needed to keep pulse oximetry above 92% Pulmonary toilet provided as needed. Renal parameters and electrolytes were closely monitored. Patient started on Marinol for appetite stimulation. Pain management was addressed. Supportive care provided. Bowel regimen instituted. Blood pressure was closely monitored. Patient clinical condition was worsened, and she became more lethargic. Neurology evaluation was requested. All mind altering drugs were on hold. Supplemental oxygen further titrated to keep pulse oximetry above 92% . ABG reveal evidence of acute hypoxia. Patient was on Venturi mask and then switched to the BiPAP. NG tube was inserted for medications. Abdominal x-ray confirmed placement. CT of the head revealed no acute intracranial pathology. On Per neurologist , even though CT brain was normal, her clinical exam was very poor. Patient exhibited decorticated posturing , which was a poor prognostic factor. Neuro-checks every 2 hours were performed. EEG was pending. Utility of MRI was doubted, given very poor exam. Neurologist recommended normothermia, IV hydration, keep systolic blood pressure between 90 and 140 and sodium between 135-145. Chest x-ray repeated and revealed worsening bibasilar opacity and interval development of small layering left pleural effusion. Patient was critically ill, remained hypoxic, despite Bipap at 100% Fio2. Patient with AIDS diagnosis and worsening encephalopathy. Per ID specialist, multiple opportunistic infections were possible- most concerning were PCP PNA. Also patient may have SPEED RUNNER lymphoma or toxoplasmosis, given mental status changes. Patient also had end-stage COPD, given extensive bulla on CT chest. From ID standpoint, AIDS and opportunistic infection were treatable, but due to baseline pulmonary status /end-stage COPD , it may be difficult to treat severe pneumonia such as PCP. Attempts were made to locate patient family. Patient was full code. Bioethics consult was requested. ALISON GONZALES was called on . Patient was able to be resuscitated during the first two codes, was orally intubated , central line was placed. The third CODE BLUE was called shortly after the first two. At that time patient was in asystole with no palpable pulses. CPR started and code was continued as per ACLS protocol. Accu-Chek check was appropriate . However despite all resuscitative efforts, patient remained in asystole. Recognizing futility of the further resuscitations, patient was pronounced at 14:08 on . Cause of : cardiopulmonary arrest FINAL DIAGNOSES: Acute hypoxemic respiratory failure Gram-positive bacteremia Pneumonia with high suspicion for PCP ESBL E. coli UTI Acute toxic encephalopathy End stage COPD Cocaine abuse HIV/AIDS with CD4 - 7 Severe protein calorie malnutrition Sinus tachycardia Severe pulmonary hypertension I have been assigned to dictate discharge summary for this account. I was not involved in the patient's management. Iris Gonzalez NP Oct 18, 2018 13:40
--- NOTE | 2018-10-21 01:08 | Cardiology Report ---
APPROVED REPORT EKG Measurement Heart [id number] IN [id number] Normal sinus rhythm T wave abnormality, consider lateral ischemia Abnormal ECG
== END 2018-10-16 14:08 | disposition expired | DRG 890 ==
LOC: EDBD 14:05 → EMR 15:06 → 3E 20:55 → EDBEDREQ 21:04 → 2E 10-13 14:24 → ICU 10-15 17:27
PROC: 06HM33Z Insertion of Infusion Device into Right Femoral Vein, Percutaneous Approach (ICD-10-PCS; principal; 2018-10-11)
PROC: 5A09357 Assistance with Respiratory Ventilation, Less than 24 Consecutive Hours, Continuous Positive Airway Pressure (ICD-10-PCS; 2018-10-16)
PROC: 0BH17EZ Insertion of Endotracheal Airway into Trachea, Via Natural or Artificial Opening (ICD-10-PCS; 2018-10-16)
DX: J18.9 Pneumonia, unspecified organism (principal); B20 Human immunodeficiency virus [HIV] disease; G93.40 Encephalopathy, unspecified; B59 Pneumocystosis; J96.01 Acute respiratory failure with hypoxia; R64 Cachexia; E46 Unspecified protein-calorie malnutrition; I27.20 Pulmonary hypertension, unspecified; N39.0 Urinary tract infection, site not specified; B96.20 Unspecified Escherichia coli [E. coli] as the cause of diseases classified elsewhere; Z68.1 Body mass index [BMI] 19.9 or less, adult; Z59.0 Homelessness; F14.10 Cocaine abuse, uncomplicated; J44.9 Chronic obstructive pulmonary disease, unspecified; I10 Essential (primary) hypertension; R00.0 Tachycardia, unspecified
CPT/HCPCS: 36415; 36600; 70450; 71045; 71275; 74018; 80048; 80053; 80202; 80307; 80329; 81001; 81003; 82550; 82553; 82803; 82962; 83605; 83735; 84100; 84484; 85007; 85025; 85610; 85730; 86360; 86592; 86635; 86705; 86709; 86803; 87040; 87081; 87086; 87181; 87340; 87449; 87535; 87536; 93005; 93306; 93970; 94002; 94660; 94760; 96361; 96365; 99285; J0171; J8499